=== PATIENT | male | born 1940 | race Caucasian/White ===

== ENCOUNTER 2017-03-15 20:30 | Emergency (ER) | payer MEDICARE, OTHER ==
[~2017-03-15] VITALS: Ht 170.1 cm; Wt 90.7 kg
[~2017-03-15 20:30] MED LIST: ALPHA LIPOIC A300 MG PO; ASPIRIN81 M1 PO; ATORVASTATIN CA10 M1 PO; CARVEDILOL6.25 MG PO; EXELON PO; EXELON3 MG PO; JANUMET 1000 MG1 TAB PO; JANUMET XR 1001 EACH PO; KEFLEX500 MG PO; LOTREL 10 MG-401 CAP PO; LOTREL 5 MG-101 CAP PO; METFORMIN500 MG PO; NIACIN1 TAB; TOBRADEX 0.1%-0.5 ML OPH; VITAMIN D31000 I2 PO; ZINC50 M3 PO
== END 2017-03-15 21:24 | disposition home or self-care (01) ==
LOC: ED 20:30
DX: K59.00 Constipation, unspecified (principal); Z98.890 Other specified postprocedural states; Z90.89 Acquired absence of other organs; Z79.899 Other long term (current) drug therapy; Z79.82 Long term (current) use of aspirin; Z88.0 Allergy status to penicillin

== ENCOUNTER 2017-04-08 16:13 | Emergency (ER) | payer MEDICARE, OTHER ==
[~2017-04-08] VITALS: Ht 172.7 cm; Wt 86.2 kg
== END 2017-04-08 18:00 | disposition home or self-care (01) ==
LOC: ED 16:13
DX: K59.00 Constipation, unspecified (principal); Z98.890 Other specified postprocedural states; Z90.89 Acquired absence of other organs; Z79.82 Long term (current) use of aspirin; Z79.899 Other long term (current) drug therapy; Z88.0 Allergy status to penicillin

== ENCOUNTER → 2017-04-26 | Outpatient (CLI) | payer MEDICARE, OTHER | END | disposition home or self-care (01) | LOC: RESCLI 01:22 | DX: E78.5 Hyperlipidemia, unspecified (principal); E11.40 Type 2 diabetes mellitus with diabetic neuropathy, unspecified; F03.90 Unspecified dementia, unspecified severity, without behavioral disturbance, psychotic disturbance, mood disturbance, and anxiety; K59.00 Constipation, unspecified; I10 Essential (primary) hypertension ==

== ENCOUNTER → 2017-07-19 | Outpatient (CLI) | payer MEDICARE, OTHER | END | disposition home or self-care (01) | LOC: RESCLI 03:12 | DX: E11.40 Type 2 diabetes mellitus with diabetic neuropathy, unspecified (principal); I10 Essential (primary) hypertension; E78.5 Hyperlipidemia, unspecified; F03.90 Unspecified dementia, unspecified severity, without behavioral disturbance, psychotic disturbance, mood disturbance, and anxiety; K59.00 Constipation, unspecified ==

== ENCOUNTER → 2017-12-08 | Outpatient (CLI) | payer MEDICARE, OTHER ==
--- NOTE | ~2017-12-08 | EKG ---
[place], [place] ELECTROCARDIOGRAM REPORT NAME: ENID STEPHENS UNIT #: [id number] ROOM: DOCTOR: CORI ALVARES MD BIRTHDATE: [birth year] DOS: 12/08/2017 TIME: 1410 hours. FINDINGS: 1. Normal sinus rhythm at 74 beats per minute. 2. Low voltage T waves in lead 1 and aVL. 3. Mildly abnormal ECG. 4. No previous tracing is available for comparison. CORI ALVARES MD CM:EKGRPT:ELECTROCARDIOGRAM REPORT [id number] CORI ALVARES MD
[2017-12-08 14:36] LABS: BASO # 0.1 10*3/uL (0.0-0.1); BASO % 0.7 % (0.0-1.0); EOS # 0.8 10*3/uL (0.0-0.4); HEMATOCRIT 43.2 % (42.0-52.0); HEMOGLOBIN 14.7 g/dl (14.0-18.0); MEAN CELL VOLUME 90.6 fl (80.0-94.0); MEAN CORPUSCULAR HGB 30.8 pg (27.0-31.0); MEAN PLATELET VOLUME 9.2 fl (9.6-12.3); MONO # 0.6 10*3/uL (0.1-1.0); MONO % 6.7 % (3.0-9.0); NEUT # 5.2 10*3/uL (2.3-7.9); NEUT % 59.8 % (47.0-73.0); PLATELET COUNT AUTOMATED 222 10*3/uL (130-400); RED BLOOD COUNT 4.77 10*6/uL (4.50-5.90); RED CELL DISTRI WIDTH 13.5 % (0-14.5); WHITE BLOOD COUNT 8.7 10*3/uL (4.8-10.8)
[2017-12-08 14:42] LABS: ALKALINE PHOSPHATASE 94 U/L (45-117); BUN 13 mg/dl (7-24); CHLORIDE 105 mmol/L (98-107); CHOLESTEROL 118 mg/dL (<200); CREATININE 0.77 mg/dL (0.70-1.30); HDL CHOLESTEROL 35 mg/dl (40-60); LDL CHOLESTEROL 54 mg/dL (9-159); POTASSIUM 4.2 mmol/L (3.5-5.1); SGOT/AST 8 IU/L (3-35); SGPT/ALT 14 U/L (12-78); SODIUM 141 mmol/L (136-145); TOTAL PROTEIN 8.7 gm/dL (6.4-8.2); TRIGLYCERIDES 146 mg/dl (<150); VLDL CHOLESTEROL 29 mg/dL (6-40)
[2017-12-08 15:11] LABS: VITAMIN D, 25-HYDROXY 22.9 ng/mL (30-100)
== END | disposition home or self-care (01) ==
LOC: RESCLI 08:02
PROVIDERS: Student in an Organized Health Care Education/Training Program
DX: Z12.11 Encounter for screening for malignant neoplasm of colon (principal); E78.5 Hyperlipidemia, unspecified; E11.40 Type 2 diabetes mellitus with diabetic neuropathy, unspecified; I10 Essential (primary) hypertension; F03.90 Unspecified dementia, unspecified severity, without behavioral disturbance, psychotic disturbance, mood disturbance, and anxiety; K59.00 Constipation, unspecified; E66.3 Overweight; Z79.899 Other long term (current) drug therapy; Z79.82 Long term (current) use of aspirin; Z88.8 Allergy status to other drugs, medicaments and biological substances

== ENCOUNTER → 2018-03-21 | Outpatient (CLI) | payer MEDICARE, OTHER ==
[2018-03-21 11:17] LABS: ALBUMIN 3.8 gm/dl (3.1-4.5); BUN 13 mg/dl (7-24); CHLORIDE 102 mmol/L (98-107); CREATININE 0.83 mg/dL (0.70-1.30); POTASSIUM 4.2 mmol/L (3.5-5.1); SGOT/AST 15 IU/L (3-35); SGPT/ALT 19 U/L (12-78); SODIUM 139 mmol/L (136-145); TOTAL PROTEIN 8.7 gm/dL (6.4-8.2)
[2018-03-21 11:19] LABS: ALKALINE PHOSPHATASE 91 U/L (45-117)
== END | disposition home or self-care (01) ==
LOC: RESCLI 00:51
PROVIDERS: Student in an Organized Health Care Education/Training Program
DX: Z23 Encounter for immunization (principal); I10 Essential (primary) hypertension; E78.5 Hyperlipidemia, unspecified; E11.40 Type 2 diabetes mellitus with diabetic neuropathy, unspecified; F03.90 Unspecified dementia, unspecified severity, without behavioral disturbance, psychotic disturbance, mood disturbance, and anxiety; K59.00 Constipation, unspecified; E66.3 Overweight; Z79.899 Other long term (current) drug therapy; Z88.8 Allergy status to other drugs, medicaments and biological substances; Z79.82 Long term (current) use of aspirin

== ENCOUNTER → 2018-08-08 | Outpatient (CLI) | payer MEDICARE, OTHER ==
[~2018-08-08] MED LIST changes: +DOXYCYCLINE100 M3 PO; +FINASTERIDE5 M1 PO; +FLOMAX0.4 MG PO; +GLUCOPHAGE1000 MG PO; +GLUCOPHAGE500 MG PO; +JANUVIA100 MG PO
== END | disposition home or self-care (01) ==
LOC: RESCLI 08-07 11:58
DX: Z23 Encounter for immunization (principal); I10 Essential (primary) hypertension; E78.5 Hyperlipidemia, unspecified; E11.40 Type 2 diabetes mellitus with diabetic neuropathy, unspecified; F03.90 Unspecified dementia, unspecified severity, without behavioral disturbance, psychotic disturbance, mood disturbance, and anxiety; K59.00 Constipation, unspecified; E66.3 Overweight; N39.42 Incontinence without sensory awareness

== ENCOUNTER → 2018-11-23 | Outpatient (CLI) | payer MEDICARE, OTHER ==
[2018-11-23 14:05] LABS: BUN 14 mg/dl (7-24); CHLORIDE 103 mmol/L (98-107); CREATININE 1.01 mg/dL (0.70-1.30); POTASSIUM 4.3 mmol/L (3.5-5.1); SODIUM 140 mmol/L (136-145)
== END | disposition home or self-care (01) ==
LOC: RESCLI 00:28
PROVIDERS: Internal Medicine
DX: E11.40 Type 2 diabetes mellitus with diabetic neuropathy, unspecified (principal); I10 Essential (primary) hypertension; E78.5 Hyperlipidemia, unspecified; F03.90 Unspecified dementia, unspecified severity, without behavioral disturbance, psychotic disturbance, mood disturbance, and anxiety; K59.00 Constipation, unspecified; E66.3 Overweight; N39.42 Incontinence without sensory awareness; Z88.8 Allergy status to other drugs, medicaments and biological substances; Z79.899 Other long term (current) drug therapy

== ENCOUNTER → 2018-12-20 | Outpatient (CLI) | payer MEDICARE, OTHER | LOC: US 00:28 | DX: N13.39 Other hydronephrosis (principal) ==

== ENCOUNTER 2019-01-07 11:40 | Emergency (ER) | payer MEDICARE, OTHER ==
[~2019-01-07] VITALS: Ht 172.7 cm; Wt 80.4 kg
--- NOTE | ~2019-01-07 | EKG ---
[place], [place] ELECTROCARDIOGRAM REPORT NAME: ENID STEPHENS UNIT #: [id number] ROOM: DOCTOR: EPIPHANY DRAFT REPORT BIRTHDATE: [birth year] [facility] Test Date: 2019-01-07 Test Time: 11:57:13 Pat Name: ENID STEPHENS Department: Room: Gender: Immigration Paralegal: Cecily Barbosa : 1940 Requested By: CASTRO NEFF Order Number: [id number] Reading MD: Matias Pate MD Measurements Intervals [place] Rate: 93 P: 42 AR: 163 QRS: -23 QRSD: 89 T: 1 QT: 393 QTc: 489 Interpretive Statements Sinus rhythm Low voltage, precordial leads Left ventricular hypertrophy Anterior Q waves, possibly due to LVH Compared to ECG 01/02/2019 01:31:57 Left ventricular hypertrophy now present Q waves now present Electronically Signed On 01-10-2019 14:22:25 PDT by Matias Pate MD CM:EKGRPT:ELECTROCARDIOGRAM REPORT [id number] CASTRO THORNTON DRAFT REPORT CASTRO NEFF M.D.
[~2019-01-07 11:40] MED LIST changes: -GLUCOPHAGE1000 MG PO; -JANUVIA100 MG PO
[2019-01-07] MEDS ORDERED: JANUVIA100 MG PO (12:00)
[2019-01-07] MEDS ORDERED: GLUCOPHAGE1000 MG PO (12:01)
[2019-01-07 12:07] LABS: BASO % 0.3 % (0.0-1.0); EOS # 0.4 10*3/uL (0.0-0.4); EOS % 4.2 % (1.0-4.0); HEMATOCRIT 35.2 % (42.0-52.0); HEMOGLOBIN 11.8 g/dl (14.0-18.0); LYMPH # 1.8 10*3/uL (1.3-4.4); LYMPH % 19.6 % (27.0-41.0); MEAN CELL VOLUME 94.1 fl (80.0-94.0); MEAN CORPUSCULAR HGB 31.6 pg (27.0-31.0); MEAN CORPUSCULAR HGB CONC 33.5 g/dl (33.0-37.0); MEAN PLATELET VOLUME 8.6 fl (9.6-12.3); MONO # 0.6 10*3/uL (0.1-1.0); MONO % 6.3 % (3.0-9.0); NEUT # 6.3 10*3/uL (2.3-7.9); NEUT % 68.1 % (47.0-73.0); PLATELET COUNT AUTOMATED 319 10*3/uL (130-400); RED BLOOD COUNT 3.74 10*6/uL (4.50-5.90); RED CELL DISTRI WIDTH 12.7 % (0-14.5); WHITE BLOOD COUNT 9.3 10*3/uL (4.8-10.8)
[2019-01-07 12:23] LABS: ALBUMIN 2.9 gm/dl (3.1-4.5); ALKALINE PHOSPHATASE 81 U/L (45-117); BUN 14 mg/dl (7-24); CHLORIDE 100 mmol/L (98-107); CREATININE 0.85 mg/dL (0.70-1.30); POTASSIUM 3.8 mmol/L (3.5-5.1); SGOT/AST 14 IU/L (3-35); SGPT/ALT 18 U/L (12-78); SODIUM 134 mmol/L (136-145); TOTAL PROTEIN 7.5 gm/dL (6.4-8.2)
[2019-01-07 12:28] LABS: TROPONIN I < 0.015 ng/ml (<0.045)
[2019-01-07 13:08] LABS: BILIRUBIN NEGATIVE (NEGATIVE); BLOOD TRACE-INTACT (NEGATIVE); CLARITY CLOUDY (CLEAR); COLOR YELLOW (YELLOW); GLUCOSE NEGATIVE (NEGATIVE); KETONE NEGATIVE (NEGATIVE); LEUKO ESTERASE 1+ (NEGATIVE); NITRITE NEGATIVE (NEGATIVE); UROBILINOGEN 0.2 E.U./dl (0.2-1.0)
[2019-01-07 13:20] LABS: BACTERIA 3+; RBC 31-40 rbc/hpf (0-2); WBC TNTC wbc/hpf (0-5)
== END 2019-01-07 16:48 | disposition short-term general hospital (02) ==
LOC: ED 11:40
PROVIDERS: Emergency Medicine
DX: N39.0 Urinary tract infection, site not specified (principal); E11.9 Type 2 diabetes mellitus without complications; E78.5 Hyperlipidemia, unspecified; I10 Essential (primary) hypertension; Z88.0 Allergy status to penicillin; Z79.2 Long term (current) use of antibiotics; Z79.899 Other long term (current) drug therapy; Z79.82 Long term (current) use of aspirin

== ENCOUNTER → 2019-02-15 | Outpatient (CLI) | payer MEDICARE, OTHER ==
[~2019-02-15] MED LIST changes: +GLUCOPHAGE1000 MG PO; +JANUVIA100 MG PO
== END | disposition home or self-care (01) ==
LOC: RESCLI 01:45
DX: E78.5 Hyperlipidemia, unspecified (principal); E11.40 Type 2 diabetes mellitus with diabetic neuropathy, unspecified; F03.90 Unspecified dementia, unspecified severity, without behavioral disturbance, psychotic disturbance, mood disturbance, and anxiety; K59.00 Constipation, unspecified; I10 Essential (primary) hypertension; Z79.899 Other long term (current) drug therapy

== ENCOUNTER → 2019-02-15 | Outpatient (CLI) | payer MEDICARE, OTHER ==
[~2019-02-15] MED LIST changes: +ASPIRIN ADULT L81 M2 PO; +CIPRO500 MG PO; +JANUMET XR 50-1 EAC1 PO; +MIRALAX17 GM PO
[2019-02-15 14:22] LABS: BILIRUBIN NEGATIVE (NEGATIVE); BLOOD 2+ (NEGATIVE); CLARITY CLOUDY (CLEAR); COLOR YELLOW (YELLOW); GLUCOSE NEGATIVE (NEGATIVE); KETONE NEGATIVE (NEGATIVE); LEUKO ESTERASE 3+ (NEGATIVE); NITRITE POSITIVE (NEGATIVE); SPECIFIC GRAVITY 1.015 (1.005-1.030); UROBILINOGEN 0.2 E.U./dl (0.2-1.0)
[2019-02-15 14:30] LABS: BASO # 0.1 10*3/uL (0.0-0.1); BASO % 0.6 % (0.0-1.0); EOS # 0.2 10*3/uL (0.0-0.4); EOS % 1.8 % (1.0-4.0); HEMATOCRIT 37.1 % (42.0-52.0); HEMOGLOBIN 11.9 g/dl (14.0-18.0); LYMPH # 1.6 10*3/uL (1.3-4.4); LYMPH % 14.2 % (27.0-41.0); MEAN CELL VOLUME 95.4 fl (80.0-94.0); MEAN CORPUSCULAR HGB 30.6 pg (27.0-31.0); MEAN CORPUSCULAR HGB CONC 32.1 g/dl (33.0-37.0); MEAN PLATELET VOLUME 9.3 fl (9.6-12.3); MONO # 0.8 10*3/uL (0.1-1.0); MONO % 7.6 % (3.0-9.0); NEUT # 8.1 10*3/uL (2.3-7.9); NEUT % 73.5 % (47.0-73.0); PLATELET COUNT AUTOMATED 478 10*3/uL (130-400); RED BLOOD COUNT 3.89 10*6/uL (4.50-5.90); RED CELL DISTRI WIDTH 13.6 % (0-14.5); WHITE BLOOD COUNT 11.1 10*3/uL (4.8-10.8)
[2019-02-15 14:33] LABS: BACTERIA 4+; MUCOUS 2+; WBC TNTC wbc/hpf (0-5)
[2019-02-15 14:49] LABS: ALBUMIN 2.8 gm/dl (3.1-4.5); ALKALINE PHOSPHATASE 95 U/L (45-117); BUN 23 mg/dl (7-24); CHLORIDE 98 mmol/L (98-107); CREATININE 1.04 mg/dL (0.70-1.30); POTASSIUM 3.9 mmol/L (3.5-5.1); SGOT/AST 26 IU/L (3-35); SGPT/ALT 57 U/L (12-78); SODIUM 134 mmol/L (136-145); TOTAL PROTEIN 8.1 gm/dL (6.4-8.2)
== END | disposition home or self-care (01) ==
LOC: LAB 12:37
PROVIDERS: Nurse Practitioner Family
DX: Z12.5 Encounter for screening for malignant neoplasm of prostate (principal); R31.9 Hematuria, unspecified; D40.0 Neoplasm of uncertain behavior of prostate

== ENCOUNTER 2019-02-16 21:23 | Emergency (ER) | payer MEDICARE, OTHER ==
[~2019-02-16] VITALS: Ht 172.7 cm; Wt 74.1 kg
[~2019-02-16 21:23] MED LIST changes: -ASPIRIN ADULT L81 M2 PO; -CIPRO500 MG PO; -JANUMET XR 50-1 EAC1 PO; -MIRALAX17 GM PO
[2019-02-16 22:36] LABS: BASO % 0.2 % (0.0-1.0); EOS # 0.1 10*3/uL (0.0-0.4); HEMATOCRIT 34.6 % (42.0-52.0); HEMOGLOBIN 11.6 g/dl (14.0-18.0); LYMPH # 1.4 10*3/uL (1.3-4.4); LYMPH % 11.7 % (27.0-41.0); MEAN CORPUSCULAR HGB 31.2 pg (27.0-31.0); MEAN CORPUSCULAR HGB CONC 33.5 g/dl (33.0-37.0); MEAN PLATELET VOLUME 8.7 fl (9.6-12.3); MONO # 0.8 10*3/uL (0.1-1.0); MONO % 6.7 % (3.0-9.0); NEUT # 9.5 10*3/uL (2.3-7.9); NEUT % 78.5 % (47.0-73.0); PLATELET COUNT AUTOMATED 403 10*3/uL (130-400); RED BLOOD COUNT 3.72 10*6/uL (4.50-5.90); RED CELL DISTRI WIDTH 13.5 % (0-14.5); WHITE BLOOD COUNT 12.2 10*3/uL (4.8-10.8)
[2019-02-16 22:53] LABS: ALBUMIN 2.4 gm/dl (3.1-4.5); ALKALINE PHOSPHATASE 84 U/L (45-117); BUN 23 mg/dl (7-24); CHLORIDE 101 mmol/L (98-107); LIPASE 85 U/L (73-393); POTASSIUM 3.9 mmol/L (3.5-5.1); SGOT/AST 31 IU/L (3-35); SGPT/ALT 54 U/L (12-78); SODIUM 136 mmol/L (136-145); TOTAL PROTEIN 6.8 gm/dL (6.4-8.2); TROPONIN I < 0.015 ng/ml (<0.045)
[2019-02-17 00:01] LABS: BILIRUBIN NEGATIVE (NEGATIVE); BLOOD 3+ (NEGATIVE); CLARITY CLOUDY (CLEAR); COLOR YELLOW (YELLOW); GLUCOSE NEGATIVE (NEGATIVE); KETONE NEGATIVE (NEGATIVE); LEUKO ESTERASE 2+ (NEGATIVE); NITRITE POSITIVE (NEGATIVE); UROBILINOGEN 0.2 E.U./dl (0.2-1.0)
[2019-02-17 00:18] LABS: BACTERIA 2+; EPITHELIAL CELLS 0-2; WBC TNTC wbc/hpf (0-5)
== END 2019-02-17 02:35 | disposition short-term general hospital (02) ==
LOC: ED 21:23
PROVIDERS: Emergency Medicine Emergency Medical Services
DX: N39.0 Urinary tract infection, site not specified (principal); E86.0 Dehydration; L89.152 Pressure ulcer of sacral region, stage 2; I10 Essential (primary) hypertension; E78.5 Hyperlipidemia, unspecified; E11.9 Type 2 diabetes mellitus without complications; Z88.0 Allergy status to penicillin; Z79.899 Other long term (current) drug therapy

== ENCOUNTER 2019-04-08 16:07 | Inpatient (IN) | payer MEDICARE, OTHER ==
[~2019-04-08] VITALS: Ht 172.7 cm; Wt 66.4 kg
--- NOTE | ~2019-04-08 | EKG ---
[place], [place] ELECTROCARDIOGRAM REPORT NAME: ENID STEPHENS UNIT #: [id number] ROOM: 524 DOCTOR: HILLARY DRAFT REPORT BIRTHDATE: [birth year] [facility] Test Date: 2019-04-08 Test Time: 19:56:20 Pat Name: ENID STEPHENS Department: Room: 524 Gender: M Electrician Helper Powerhouse: : 1940 Requested By: NERIS DEL ROSARIO Order Number: [id number] Reading MD: Slaeem Ann Measurements Intervals [place] Rate: 91 P: -25 MA: 161 QRS: -16 QRSD: 92 T: 43 QT: 386 QTc: 475 Interpretive Statements Sinus rhythm Ventricular premature complex Borderline left axis deviation Low voltage, precordial leads Abnormal R-wave progression, early transition Baseline wander in lead(s) V6 Compared to ECG 02/16/2019 22:35:55 Ventricular premature complex(es) now present Low QRS voltage now present Myocardial infarct finding no longer present Prolonged QT interval no longer present Electronically Signed On 04-09-2019 11:15:47 PST by Saleem Ann CM:EKGRPT:ELECTROCARDIOGRAM REPORT [id number] NERIS THORNTON DRAFT REPORT NERIS DEL ROSARIO MD
--- NOTE | ~2019-04-08 | EKG ---
[place], [place] ELECTROCARDIOGRAM REPORT NAME: ENID STEPHENS UNIT #: [id number] ROOM: 524 DOCTOR: HILLARY DRAFT REPORT BIRTHDATE: [birth year] [facility] Test Date: 2019-04-08 Test Time: 16:07:38 Pat Name: ENID STEPHENS Department: Room: 524 Gender: M Underwriting Intern: : 1940 Requested By: NERIS DEL ROSARIO Order Number: [id number] Reading MD: Saleem Ann Measurements Intervals [place] Rate: 96 P: -30 PA: 145 QRS: -9 QRSD: 87 T: 53 QT: 365 QTc: 462 Interpretive Statements Sinus rhythm Ventricular premature complex Low voltage, precordial leads Abnormal R-wave progression, early transition Baseline wander in lead(s) I,II,aVR Compared to ECG 02/16/2019 22:35:55 Ventricular premature complex(es) now present Low QRS voltage now present Myocardial infarct finding no longer present Prolonged QT interval no longer present Electronically Signed On 04-09-2019 11:13:23 PST by Slaeem Ann CM:EKGRPT:ELECTROCARDIOGRAM REPORT [id number] NERIS THORNTON DRAFT REPORT NERIS DEL ROSARIO MD
[2019-04-08 16:13] VITALS: BP 91/58
[2019-04-08 16:27] LABS: BASO % 0.3 % (0.0-1.0); EOS # 0.4 10*3/uL (0.0-0.4); EOS % 3.1 % (1.0-4.0); HEMATOCRIT 33.6 % (42.0-52.0); HEMOGLOBIN 10.9 g/dl (14.0-18.0); LYMPH # 1.4 10*3/uL (1.3-4.4); LYMPH % 11.3 % (27.0-41.0); MEAN CELL VOLUME 91.8 fl (80.0-94.0); MEAN CORPUSCULAR HGB 29.8 pg (27.0-31.0); MEAN CORPUSCULAR HGB CONC 32.4 g/dl (33.0-37.0); MEAN PLATELET VOLUME 8.7 fl (9.6-12.3); MONO # 0.7 10*3/uL (0.1-1.0); MONO % 5.7 % (3.0-9.0); NEUT # 9.4 10*3/uL (2.3-7.9); NEUT % 77.6 % (47.0-73.0); PLATELET COUNT AUTOMATED 332 10*3/uL (130-400); RED BLOOD COUNT 3.66 10*6/uL (4.50-5.90); RED CELL DISTRI WIDTH 14.5 % (0-14.5); WHITE BLOOD COUNT 12.2 10*3/uL (4.8-10.8)
[2019-04-08 16:37] LABS: ACT PARTIAL THROMBO TIME 26.3 SECONDS (20.0-32.1); INTERNATIONAL NORM RATIO 1.1 (2.0-3.5)
[2019-04-08 16:47] LABS: ALBUMIN 2.8 gm/dl (3.1-4.5); ALKALINE PHOSPHATASE 92 U/L (45-117); BUN 21 mg/dl (7-24); CHLORIDE 96 mmol/L (98-107); CREATININE 1.14 mg/dL (0.70-1.30); POTASSIUM 3.9 mmol/L (3.5-5.1); SGOT/AST 13 IU/L (3-35); SGPT/ALT 13 U/L (12-78); SODIUM 132 mmol/L (136-145); TOTAL PROTEIN 7.8 gm/dL (6.4-8.2)
[2019-04-08 16:49] LABS: TROPONIN I < 0.015 ng/ml (<0.045)
[2019-04-08 17:30] VITALS: BP 91/60
[2019-04-08 18:05] LABS: BILIRUBIN NEGATIVE (NEGATIVE); BLOOD 1+ (NEGATIVE); CLARITY CLOUDY (CLEAR); COLOR YELLOW (YELLOW); GLUCOSE NEGATIVE (NEGATIVE); KETONE NEGATIVE (NEGATIVE); LEUKO ESTERASE 2+ (NEGATIVE); NITRITE NEGATIVE (NEGATIVE); PH 5.5 (5.0-9.0); SPECIFIC GRAVITY >= 1.030 (1.005-1.030)
[2019-04-08 18:10] LABS: BACTERIA 3+; MUCOUS 2+; WBC TNTC wbc/hpf (0-5)
[2019-04-08] MEDS ORDERED: CIPRO500 MG PO (18:47)
[2019-04-08 18:49] VITALS: BP 95/57
[2019-04-08 20:00] VITALS: BP 113/61
[2019-04-08 20:15] VITALS: BP 113/61
--- NOTE | 2019-04-08 20:15 | NUR ---
A 78, admitted to 5E, under the services of CHANCE Cano DO with a diagnosis of UTI, GAIT INSTABILITY, FREQUENT FALLS, GENERALIZED WEAKNESS. Chief complaint is WEAKNESS. Patient arrived via stretcher from ER. Monitor applied. Initial assessment completed. Vital signs taken and recorded. CHANCE CANO DO notified of admission to the unit. Orders received. See assessment for past medical history, medications and allergies. Patient and/or family oriented to unit. [facility] visitation policy reviewed. Clothing/patient valuable form completed. RHYS RAMSAY
[2019-04-08] MEDS ORDERED: JANUMET XR 50-1 EAC1 PO (20:29)
[2019-04-08] MEDS ORDERED: MIRALAX17 GM PO (20:32)
--- NOTE | 2019-04-08 20:32 | NUR ---
PT'S HOME MED REC UP TO DATE PER .
--- NOTE | 2019-04-08 22:30 | NUR ---
BOLUS 2 OF 2 COMPLETE AT THIS TIME. PER SEPSIS PROTOCOL, PT IS TO GET 30ML/KG. 66.39 KG X 30 ML/KG = 1991.7 ML.
[2019-04-09] VITALS: BP 107/60
--- NOTE | 2019-04-09 03:50 | NUR ---
PT ASLEEP IN BED, EASILY AROUSABLE. DENIES ANY NEEDS AT PRESENT TIME. WILL MONITOR. CALL LIGHT IN REACH.
[2019-04-09 06:31] LABS: BASO % 0.5 % (0.0-1.0); EOS # 0.5 10*3/uL (0.0-0.4); EOS % 5.4 % (1.0-4.0); HEMATOCRIT 29.6 % (42.0-52.0); HEMOGLOBIN 9.7 g/dl (14.0-18.0); LYMPH # 1.3 10*3/uL (1.3-4.4); MEAN CELL VOLUME 90.8 fl (80.0-94.0); MEAN CORPUSCULAR HGB 29.8 pg (27.0-31.0); MEAN CORPUSCULAR HGB CONC 32.8 g/dl (33.0-37.0); MEAN PLATELET VOLUME 8.5 fl (9.6-12.3); MONO # 0.6 10*3/uL (0.1-1.0); MONO % 7.5 % (3.0-9.0); NEUT # 5.9 10*3/uL (2.3-7.9); NEUT % 68.9 % (47.0-73.0); PLATELET COUNT AUTOMATED 281 10*3/uL (130-400); RED BLOOD COUNT 3.26 10*6/uL (4.50-5.90); RED CELL DISTRI WIDTH 14.3 % (0-14.5); WHITE BLOOD COUNT 8.5 10*3/uL (4.8-10.8)
[2019-04-09 07:00] LABS: BUN 16 mg/dl (7-24); CHLORIDE 104 mmol/L (98-107); CREATININE 0.73 mg/dL (0.70-1.30); PHOSPHOROUS 3.4 mg/dL (2.5-4.9); POTASSIUM 3.6 mmol/L (3.5-5.1); SODIUM 136 mmol/L (136-145)
--- NOTE | 2019-04-09 08:09 | NUR ---
Nursing screen received as well as OT referral. Will follow up with patient for completion of OT eval and POC. Thank you. Judit Ashley, OTR/L
[2019-04-09 12:00] VITALS: BP 133/67
--- NOTE | 2019-04-09 12:54 | NUR ---
UTILIZATION MANAGEMENT NURSE received notice that the patient would like to be referred to [facility]. UTILIZATION MANAGEMENT NURSE faxed demographics to [facility]. Will fax other information once it is available. -LUANNE Conley
--- NOTE | 2019-04-09 13:50 | NUR ---
ISABEL WAS NOT IN [place]. CALLED PHARMACY TO SEND MED.
--- NOTE | 2019-04-09 13:55 | NUR ---
Occupational therapy orders received and OT evaluation completed in full on floor five. Patient precautions include fall risk, ww use, bed/chair alarm, and contact precautions. Per OT eval, OT recommends home with HH SN, OT, and PT. Patient complexity is low, 228[address]. Thank you for the referral. Judit Ashley, OTR/L
--- NOTE | 2019-04-09 14:24 | NUR ---
Cigar Packer in to talk to patient. Patient states lives at HOME with . There are FEW steps in the home. Physician: ERIC Pharmacy: [facility] Home health services: [facility] N[facility]SE 1 DAY WEEK, PT 2 DAYS A WEEK Patient's level of ADLs: MODERATE ASSIST Patient has working utilities: YES DME: ROLLATOR, WALKER, CANE Follow-up physician's appointment after d/c: WILL BE MADE BY HOSPITALIST NURSE DIRECTOR ON DISCHARGE Does patient want to access PORTAL?: NO Discharge plan PT LIVES AT HOME WITH HIS . STATES PT HAS BEEN FALLING AT HOME AND HAS BEEN VERY WEAK. PT HAS SUPRA PUBIC CATHETER INSERTED 10 DAYS AGO. TALKED WITH ABOUT A SNF CONSULT AND SHE IS IN AGREEMENT FOR IT. REFERRAL WAS MADE TO [facility] WIFES CHOICE BY METAL DRAWER. WILL CONTINUE TO FOLLOW. . CHAI DEL CID
[2019-04-09 16:00] VITALS: BP 82/67
--- NOTE | 2019-04-09 16:23 | NUR ---
NOTIFIED OF POSITIVE BLOOD CULTURE. NEW ORDERS RECEIVED.
[2019-04-09 16:30] VITALS: BP 110/64; BP 130/72
--- NOTE | 2019-04-09 19:54 | NUR ---
IV ABX INFUSION COMPLETE, BUT IV IN RAC EDEMATOUS & PAINFUL AT THIS TIME. SITE TO RAC REMOVED AND DSD APPLIED. NEW 20 GAUGE IV SITE INITIATED IN LAC PER POLICY. PT TOLERATED WELL. BED LEFT LOCKED IN LOW POSITION, BED ALARM INTACT, CALL LIGHT IN REACH.
[2019-04-09 20:00] VITALS: BP 119/65
[2019-04-10] VITALS: BP 122/72
--- NOTE | 2019-04-10 00:58 | NUR ---
PT REFUSING TO HAVE VITALS TAKEN. TOLD STAFF TO "GET THE H*LL OUT" OF HIS ROOM. PATIENT TO BE LEFT ALONE AT THIS TIME. BED ALARM INTACT. CALL LIGHT IN REACH.
[2019-04-10 06:57] LABS: BASO # 0.1 10*3/uL (0.0-0.1); BASO % 0.6 % (0.0-1.0); EOS # 0.9 10*3/uL (0.0-0.4); EOS % 9.3 % (1.0-4.0); HEMATOCRIT 30.8 % (42.0-52.0); HEMOGLOBIN 10.2 g/dl (14.0-18.0); LYMPH # 1.4 10*3/uL (1.3-4.4); LYMPH % 15.3 % (27.0-41.0); MEAN CELL VOLUME 90.9 fl (80.0-94.0); MEAN CORPUSCULAR HGB 30.1 pg (27.0-31.0); MEAN CORPUSCULAR HGB CONC 33.1 g/dl (33.0-37.0); MEAN PLATELET VOLUME 8.8 fl (9.6-12.3); MONO # 0.6 10*3/uL (0.1-1.0); NEUT # 6.2 10*3/uL (2.3-7.9); NEUT % 66.8 % (47.0-73.0); PLATELET COUNT AUTOMATED 325 10*3/uL (130-400); RED BLOOD COUNT 3.39 10*6/uL (4.50-5.90); RED CELL DISTRI WIDTH 14.4 % (0-14.5); WHITE BLOOD COUNT 9.3 10*3/uL (4.8-10.8)
[2019-04-10 07:19] LABS: BUN 11 mg/dl (7-24); CHLORIDE 103 mmol/L (98-107); CREATININE 0.65 mg/dL (0.70-1.30); POTASSIUM 3.5 mmol/L (3.5-5.1); SODIUM 136 mmol/L (136-145)
--- NOTE | 2019-04-10 11:58 | NUR ---
DR BARKER'S OFFICE NOTIFIED OF PT CONSULT FOR GPC BACTEREMIA, GPC, HX MRSA AND UTI.
[2019-04-10 12:00] VITALS: BP 104/60
--- NOTE | 2019-04-10 12:21 | NUR ---
ENGINEERING DESIGNER faxed updates to [facility]. Will need PT Eval to complete referral. -LUANNE Conley
--- NOTE | 2019-04-10 13:08 | NUR ---
PT HAS BEEN REFERRED TO [facility] PER WISHES. PT REQUIRES A 3 NIGHT STAY. WILL CONTINUE TO FOLLOW.
--- NOTE | 2019-04-10 14:14 | NUR ---
OT NOTE Pt was seen this P.M. 1:1 for 15 minute OT session. Upon arrival pt was supine in bed. Pt identified by name and and had no complaints at this time. Pt transferred supine to sit EOB with Stas for assist with UB. Pt completed multiple sit to stand transfers from the bed level with CGA and use of w/w for UE support. Challenged pt's static standing tolerance needed for increased I in self care tasks and functional transfers. Pt was able to tolerate aprox 4 minutes before sitting due to fatigue. Functional mobility was then completed to the bathroom with CGA and use of w/w with one tactile prompt for walker navigation. While in the bathroom pt required education on tight turning technique due to pt being unsure how to complete and walking away without the walker. Pt had fair carry over. Pt transferred on to standard commode with CGA and off with Stas due to low surface. He then stood sink side while washing his hands with CGA for safety. Again pt at the sink required education on walker safety. Pt was left sitting upright on the EOB under physical therapy supervision. Continue with rec D/C plan to home with home health. JAXON Funes/Shazia
--- NOTE | 2019-04-10 15:49 | NUR ---
PHYSICAL THERAPY Physical therapy evaluation completed, 5E. Full details to follow. moderate complexity determined after evaluation/chart review, [address]. PT to work on strength, safety, endurance, gait, transfers, balance. Recommending SNF at discharge. Thank you Gloria Gonzales, PT, DPT
[2019-04-10 16:00] VITALS: BP 112/66
--- NOTE | 2019-04-10 19:39 | NUR ---
PT ASSISTED UP OUT OF BED TO USE BATHROOM AND BACK INTO BED. PT HAD SMALL BOWEL MOVEMENT. BRIEF CHANGED IT WAS WET. BUTTOCKS RED BUT BLANCHABLE ON BONY PROMINENCE. HYDRAGUARD AND OPTIFOAM SACRAL APPLIED TO AREA PATIENT IS VERY THIN AND HAS POTENTIAL FOR BREAKDOWN. PATIENT STATES IT FEELS MUCH BETTER AFTER OPTIFOAM APPLICATION. NEW BED LINENS ALSO PROVIDED AT THIS TIME PT SPILLED WATER. PT PULLED UP & REPOSITIONED FOR COMFORT. BED LEFT LOCKED IN LOW POSIITON. BED ALARM INTACT. SIDE RAILS UP X2. CALL LIGHT IN REACH. WILL MONITOR.
[2019-04-10 20:00] VITALS: BP 109/62
[2019-04-11] VITALS: BP 123/71
--- NOTE | 2019-04-11 04:08 | NUR ---
PT ASLEEP IN BED. RESPIRATIONS EASY. NO S/S OF DISTRESS NOTED. WILL MONITOR. CALL LIGHT IN REACH. BED ALARM INTACT.
[2019-04-11 06:29] LABS: BASO # 0.1 10*3/uL (0.0-0.1); BASO % 0.6 % (0.0-1.0); EOS # 0.9 10*3/uL (0.0-0.4); EOS % 8.7 % (1.0-4.0); HEMATOCRIT 31.8 % (42.0-52.0); HEMOGLOBIN 10.1 g/dl (14.0-18.0); LYMPH # 1.7 10*3/uL (1.3-4.4); LYMPH % 15.9 % (27.0-41.0); MEAN CELL VOLUME 91.6 fl (80.0-94.0); MEAN CORPUSCULAR HGB 29.1 pg (27.0-31.0); MEAN CORPUSCULAR HGB CONC 31.8 g/dl (33.0-37.0); MEAN PLATELET VOLUME 8.8 fl (9.6-12.3); MONO # 0.7 10*3/uL (0.1-1.0); MONO % 6.3 % (3.0-9.0); NEUT # 7.2 10*3/uL (2.3-7.9); NEUT % 66.7 % (47.0-73.0); PLATELET COUNT AUTOMATED 342 10*3/uL (130-400); RED BLOOD COUNT 3.47 10*6/uL (4.50-5.90); RED CELL DISTRI WIDTH 14.5 % (0-14.5); WHITE BLOOD COUNT 10.8 10*3/uL (4.8-10.8)
[2019-04-11 06:43] LABS: BUN 10 mg/dl (7-24); CHLORIDE 106 mmol/L (98-107); CREATININE 0.73 mg/dL (0.70-1.30); POTASSIUM 3.7 mmol/L (3.5-5.1); SODIUM 141 mmol/L (136-145)
--- NOTE | 2019-04-11 07:44 | NUR ---
Waiting on acceptance from [facility]. CHAIRLIFT OPERATOR faxed PT/OT Eval and clinical updates to [facility].-LUANNE Conley
[2019-04-11 08:00] VITALS: BP 139/73
--- NOTE | 2019-04-11 08:00 | NUR ---
PHYSICAL THERAPY PT SITTING IN CHAIR WITH BODY ALARM PULLED UPON ARRIVAL. PT STATED "I DON'T KNOW WHY I HAVE THIS THING BUT HERE IT IS." HANGING THE STRING TO THIS INTERVENTION MANAGER. PT IDENTIFIED BY NAME AND . PT PERFORMED STS FROM CHAIR TO FWW WITH CGA AND VC'S FOR SAFTEY AND TECHNIQUE. PT GAIT TRAINED 10FT X2 WITH FWW AND CGA WITH VC'S FOR SAFETY PT WAS WANTING TO WALK WITHOUT WALKER. PT IS UNSTEADY AND GAIT TRAINED WITH A WBOS AND UNSTEADINESS. PT PERFORMED STS TO ANF FROM TOILET WITH CGA/MARYBETH WITH VC'S FOR SAFETY PT WANTED TO SIT WITH AN UNSAFE TECHNIQUE. PT PERFORMED STS TO CHAIR WITH VC'S FOR SAFETY WITH TRANSFER PT WAS STARTING TO SIT WITH UNSAFE TRANSFER. PT REQUIRED MARYBETH/CGA WITH STS. PT SITTING IN IN RECLINER WITH BODY ALARM ON AND CALL LIGHT WITHIN REACH AT END OF SESSION STARTING TO EAT BREAKFAST. PT SEEN 1:1 FOR 16MINS. ALYSSA DAVIS PTA
[2019-04-11 12:00] VITALS: BP 100/52
--- NOTE | 2019-04-11 14:22 | NUR ---
[facility] WILL NOT ACCEPT PT UNTIL THEY KNOW IF PT WILL REQUIRE ANTIBIOTICS AND WHAT THEY WILL BE. ID IS ON AND WAITING FOR FINAL CULTURES BEFORE DECIDING IF PT NEEDS ANTIBIOTICS.
[2019-04-11 16:00] VITALS: BP 105/62
[2019-04-11 20:00] VITALS: BP 104/58
--- NOTE | 2019-04-11 22:17 | NUR ---
PATIENT REFUSING INSULIN. STATING"I DO NOT WANT ANY GD INSULIN. GET OUT OF MY ROOM"
[2019-04-12] VITALS: BP 132/72
[2019-04-12 08:00] VITALS: BP 118/67
--- NOTE | 2019-04-12 09:35 | NUR ---
OT NOTE Pt was seen this A.M. 1:1 for 20 minute OT session. Upon arrival pt was sitting upright in the recliner. Pt identified by name and and had no complaints at this time. Pt completed sit to stand transfer from chair level with CGA for safety. Challenged pt's static standing tolerance needed for increased I in self care tasks and functional transfers, pt was able to tolerate aprox 5 minutes at a time before sitting due to fatigue. Functional mobility was then completed into the bathroom with SBA and use of straight cane for UE support. There he transferred on/off standard commode with SBA, completed clothing management with SBA, and toilet hygiene completed with supervision while seated. Pt then stood sink side while washing his hands and face with CGA for safety while vision was cut. Throughout tasks pt had bouts of impulsive behaviors and fair safety awareness which required verbal prompts to correct, pt then presented with good carry over. FUnctional mobility completed back to the recliner where he was left sitting upright with call light in hand, tray table in place, and body alarm activated for safety. Continue with rec D/C plan to home with home health. JAXON Funes/Shazia
--- NOTE | 2019-04-12 10:30 | NUR ---
PHYSICAL THERAPY Patient presented to therapy in sitting in bedside chair with head of bed elevated and report of no pain or other complaints. Patient gives informed consent for treatment. Patient was identified by name and on wristband. Patient performed sit to stand from bedside chair with SBA. Patient performed ambulation with standard cane and Close Supervision for 60' x 2 ,inside room only, due to isolation precautions. Patient had one LOB with gait requiring MIN A X 1 to correct. NO SOB with gait. Patient performed TUG TEST in 20 seconds with use of UEs to push off of armrests of chair. Patient used standard cane for TUG TEST. Patient performd 30 seconds sit to stand test at 7 Xs sit to stands in 30 seonds total. Patient did use UEs to push off of armrests of chair during 30 second sit to stand test. Patient has IV infusing at this time. Patient was left in bed side chair with call light within reach, chair alarm tested and attached to patient and tray table near patient. Patient was 1:1 with this SET UP MECHANIC AUTOMATIC LINE for 19 minutes total. ADEEL RILEY SET UP MECHANIC AUTOMATIC LINE with use of UEs t opush off of armrests of chair
--- NOTE | 2019-04-12 11:37 | NUR ---
WAITING FOR ACCEPTANCE AT [facility]. WILL CONTINUE TO FOLLOW.
[2019-04-12 12:00] VITALS: BP 134/80
--- NOTE | 2019-04-12 14:00 | NUR ---
OT NOTE Pt was seen this P.M. 1:1 for second OT session consisting of 20 minutes. Upon arrival pt was sitting upright in bedside chair. Pt identified by name and and had no complaints at this time. Sit to stand completed from chair level with CGA and use of straight cane for UE support followed by functional mobility into the bathroom with CGA. There he transferred on/off standard commode with SBA for safety. Pt then returned to the EOB where he completed BUE towel exercises over all planes of motion for 1 X 10 to increase UE strength needed for increased I in self care tasks and functional transfers. Pt was left sitting upright in the recliner with call light in hand, tray table in place, and phone in reach. Continue with rec D/C plan [facility]. JAXON Funes/Shazia
--- NOTE | 2019-04-12 14:29 | NUR ---
PHYSICAL THERAPY Patient presented to therapy in sitting in bedside chair with no concerns or complaints. Patient was identified by name and on wristband. Patient gives informed consent for treatment. Patient performed sit to stand from bedside chair with SBA. Patient ambulated within room with standard cane and Close Supervision for 60' x 1 and no LOB. Patient sat in bedside chair and performed seated bilateral LE ther ex 2 x 10 reps each in all planes of movement for strengthening the bilateral LEs in order to improve patient's functional mobility. Patient was left in bedside chair with call light within reach and tray table near patient. Patient was 1;1 with this TON CONTAINER FILLER for 20 minutes total. ADEEL RILEY TON CONTAINER FILLER
--- NOTE | 2019-04-12 15:08 | NUR ---
Waiting on acceptance from [facility]. STEWARD/STEWARDESS TOURIST CLASS faxed updates to [facility] showing the patients IVAB was discontinued. Will await for acceptance/denial. -LUANNE Conley
--- NOTE | 2019-04-12 15:43 | NUR ---
Patient has been accepted at [facility] and can go when medically stable. BEN DAY ARTIST spoke with Genomics Scientist Renetta. She spoke with the patients who stated she would transport the patient to [facility]. BEN DAY ARTIST notified Daniela that once a discharge is placed the patients family will be transporting him to her facility she was agreeable. -LUANNE Conley
[2019-04-12 16:00] VITALS: BP 121/69
--- NOTE | 2019-04-12 16:00 | NUR ---
DR COLINDRES NOTIFIED THAT PT HAS BEEN ACCEPTED TO [facility] AND CAN BE DISCHARGED TONIGHT. IN ROOM AND NOTIFIED THAT HE WAS ACCEPTED. STATES SHE WILL TRANSPORT HIM TO [facility]. HANANE Najera PT RN INFORMED.
--- NOTE | 2019-04-12 17:21 | NUR ---
Discharge instructions reviewed with patient/family. Patient receptive and verbalizes understanding. Follow-up care arranged. Written instructions given to patient/family. HANANE SAINI
--- NOTE | 2019-04-12 17:26 | NUR ---
NURSE TO NURSE REPORT GIVEN TO LEONARDO MEJIAS AT [facility].
--- NOTE | 2019-04-13 08:09 | NUR ---
PHYSICAL THERAPY CO-SIGN I approve of the Physical Therapy notes written above. Gloria Gonzales, PT, DPT
--- NOTE | 2019-04-13 08:14 | NUR ---
OCCUPATIONAL THERAPY CO-SIGN I approve of the Occupational Therapy notes written above. DIANE HUNG OTR/Shazia
== END 2019-04-12 17:26 | disposition other institution (70) | DRG 871 ==
LOC: ED 16:07 → 5E 18:03 → EDHOLD 18:03 → 5E 18:26
PROVIDERS: Emergency Medicine; Family Medicine; Student in an Organized Health Care Education/Training Program; ADMIT Emergency Medicine
DX: A41.89 Other specified sepsis (principal); N17.0 Acute kidney failure with tubular necrosis; N39.0 Urinary tract infection, site not specified; E87.2 Acidosis; E78.5 Hyperlipidemia, unspecified; R65.20 Severe sepsis without septic shock; R26.81 Unsteadiness on feet; E11.65 Type 2 diabetes mellitus with hyperglycemia; D64.9 Anemia, unspecified; K59.00 Constipation, unspecified; R29.6 Repeated falls; N18.2 Chronic kidney disease, stage 2 (mild); I12.9 Hypertensive chronic kidney disease with stage 1 through stage 4 chronic kidney disease, or unspecified chronic kidney disease; E11.22 Type 2 diabetes mellitus with diabetic chronic kidney disease; N40.0 Benign prostatic hyperplasia without lower urinary tract symptoms; Z87.440 Personal history of urinary (tract) infections; Z90.89 Acquired absence of other organs; Z88.0 Allergy status to penicillin; Z79.899 Other long term (current) drug therapy; Z79.84 Long term (current) use of oral hypoglycemic drugs; Z84.1 Family history of disorders of kidney and ureter; Z84.89 Family history of other specified conditions; Q05.9 Spina bifida, unspecified

== ENCOUNTER → 2019-05-10 | Outpatient (CLI) | payer MEDICARE, OTHER ==
[~2019-05-10] MED LIST changes: +ASPIRIN ADULT L81 M2 PO; +CIPRO500 MG PO; +JANUMET XR 50-1 EAC1 PO; +MIRALAX17 GM PO
[2019-05-10 14:59] LABS: BUN 16 mg/dl (7-24); CHLORIDE 104 mmol/L (98-107); CREATININE 0.83 mg/dL (0.70-1.30); POTASSIUM 4.4 mmol/L (3.5-5.1); SODIUM 139 mmol/L (136-145)
== END | disposition home or self-care (01) ==
LOC: LAB 00:15 → RESCLI 00:15
PROVIDERS: Internal Medicine
DX: E78.5 Hyperlipidemia, unspecified (principal); E11.40 Type 2 diabetes mellitus with diabetic neuropathy, unspecified; F03.90 Unspecified dementia, unspecified severity, without behavioral disturbance, psychotic disturbance, mood disturbance, and anxiety; I10 Essential (primary) hypertension; E87.6 Hypokalemia; E55.9 Vitamin D deficiency, unspecified; N39.42 Incontinence without sensory awareness; Z79.899 Other long term (current) drug therapy; Z88.0 Allergy status to penicillin

== ENCOUNTER 2019-05-19 18:18 | Inpatient (IN) | payer MEDICARE, OTHER ==
[2019-05-19] VITALS (9 sets, daily range): BP systolic 89–106; BP diastolic 49–62
[~2019-05-19] VITALS: Ht 172.7 cm; Wt 68.5 kg
[~2019-05-19 18:18] MED LIST changes: -ASPIRIN ADULT L81 M2 PO
--- NOTE | 2019-05-19 18:23 | NUR ---
MERCEDES HUGGER WARMING BLANKET PLACED DIRECTLY AGAINST PT SKIN WITHOUT GOWN AND TURNED TO MAXIMUM DUE TO RECTAL TEMP 94.4. SUPERFICIAL ABRASIONS WITH SWELLING AND REDNESS AND PAIN REPORTED IN BOTH KNEES. PT IS ALERT AND ORIENTED TO PLACE, PERSON AND TIME. WARMED SALINE 500CC BOLUS INFUSION BEGIN BY EMS IS STILL INFUSING. ALL BELONGINGS BAGGED AND NAME APPLIED TO WHITE INCLUDE ONLY HIS PANTS AND A PLUG FOR HIS SUPRAPUBIC CATH. SHIRT WAS DESTROYED.
--- NOTE | 2019-05-19 18:47 | NUR ---
TO BEDSIDE. PROVIDED THE WHITE BAG WITH CLOTHING AND CATH PLUG. PT CONDITION AND ORDERED TESTING EXPLAINED TO HER. PT FEELING BETTER AND "ALOT WARMER".
[2019-05-19 19:53] LABS: ALBUMIN 3.1 gm/dl (3.1-4.5); ALKALINE PHOSPHATASE 84 U/L (45-117); BUN 13 mg/dl (7-24); CHLORIDE 106 mmol/L (98-107); CREATININE 0.82 mg/dL (0.70-1.30); POTASSIUM 3.7 mmol/L (3.5-5.1); SGOT/AST 15 IU/L (3-35); SGPT/ALT 12 U/L (12-78); SODIUM 140 mmol/L (136-145); TOTAL PROTEIN 7.5 gm/dL (6.4-8.2)
[2019-05-19 20:28] LABS: BASO % 0.2 % (0.0-1.0); EOS % 0.3 % (1.0-4.0); HEMATOCRIT 33.1 % (42.0-52.0); HEMOGLOBIN 10.9 g/dl (14.0-18.0); LYMPH # 0.7 10*3/uL (1.3-4.4); LYMPH % 4.9 % (27.0-41.0); MEAN CELL VOLUME 92.5 fl (80.0-94.0); MEAN CORPUSCULAR HGB 30.4 pg (27.0-31.0); MEAN CORPUSCULAR HGB CONC 32.9 g/dl (33.0-37.0); MEAN PLATELET VOLUME 9.1 fl (9.6-12.3); MONO # 0.7 10*3/uL (0.1-1.0); MONO % 5.1 % (3.0-9.0); NEUT # 12.7 10*3/uL (2.3-7.9); NEUT % 88.8 % (47.0-73.0); PLATELET COUNT AUTOMATED 211 10*3/uL (130-400); RED BLOOD COUNT 3.58 10*6/uL (4.50-5.90); RED CELL DISTRI WIDTH 16.1 % (0-14.5); WHITE BLOOD COUNT 14.3 10*3/uL (4.8-10.8)
[2019-05-19 20:43] LABS: ACT PARTIAL THROMBO TIME 24.7 SECONDS (20.0-32.1)
[2019-05-19 20:44] LABS: LIPASE 60 U/L (73-393)
[2019-05-19 20:46] LABS: TROPONIN I 0.105 ng/ml (<0.045)
--- NOTE | 2019-05-19 20:46 | NUR ---
NOTIFIED BY LAB PTS TROPONIN 0.0105. DR LARSEN NOTIFIED.
--- NOTE | 2019-05-19 21:25 | NUR ---
CRITICAL LACTIC ACID 4.3 RECEIVED BY LAB, DR TOVAR AND LEONARDO ROBLERO
--- NOTE | 2019-05-19 21:25 | NUR ---
TEMPERATURE RECHECKED. 98.9 RECTALLY, MERCEDES HUGGER REMOVED AND PT PLACED IN WARM GOWN AND WARM BLANKETS COVERED OVER PT
[2019-05-20 00:03] VITALS: BP 90/52
[2019-05-20 00:15] VITALS: BP 113/70
--- NOTE | 2019-05-20 00:15 | NUR ---
A 78, admitted to , under the services of DESTINY Pineda DO with a diagnosis of ELEVATED TROPONIN, HYPOTHERMIA. Chief complaint is WEAKNESS. Patient arrived via stretcher from ER. Monitor applied. Initial assessment completed. Vital signs taken and recorded. DESTINY PINEDA DO notified of admission to the unit. Orders received. See assessment for past medical history, medications and allergies. Patient and/or family oriented to unit. [address] visitation policy reviewed. Clothing/patient valuable form completed. LISSETT URIBE
--- NOTE | 2019-05-20 00:16 | NUR ---
PT HAS ABRASIONS TO BOTH KNEES. NO WOUNDS.
[2019-05-20 00:38] LABS: BILIRUBIN NEGATIVE (NEGATIVE); BLOOD 1+ (NEGATIVE); CLARITY SL CLOUDY (CLEAR); COLOR YELLOW (YELLOW); GLUCOSE NEGATIVE (NEGATIVE); KETONE 1+ (NEGATIVE); LEUKO ESTERASE 1+ (NEGATIVE); NITRITE POSITIVE (NEGATIVE); PH 5.5 (5.0-9.0); SPECIFIC GRAVITY >= 1.030 (1.005-1.030); UROBILINOGEN 0.2 E.U./dl (0.2-1.0)
[2019-05-20 00:50] LABS: BACTERIA 2+; WBC TNTC wbc/hpf (0-5); YEAST 3+
--- NOTE | 2019-05-20 01:09 | NUR ---
NOTIFIED OF TROPONIN OF 0.456. NO NEW ORDERS RECEIVED.
--- NOTE | 2019-05-20 01:50 | NUR ---
ANSWERING SERVICE NOTIFIED OF NEW CONSULT.
--- NOTE | 2019-05-20 02:28 | NUR ---
PT REFUSING BLOOD WORK. INFORMED. OK TO CANCEL TROPONINS. PER RETRY WITH NEXT SCHEDULED BLOOD DRAW.
--- NOTE | 2019-05-20 03:06 | NUR ---
PT STILL REFUSING BLOOD WORK. INFORMED. LAB WILL RETRY AT NEXT SCHEDULED TIME.
[2019-05-20 06:17] LABS: BASO % 0.3 % (0.0-1.0); EOS # 0.4 10*3/uL (0.0-0.4); EOS % 4.7 % (1.0-4.0); HEMATOCRIT 28.6 % (42.0-52.0); HEMOGLOBIN 9.3 g/dl (14.0-18.0); LYMPH # 2.6 10*3/uL (1.3-4.4); LYMPH % 28.2 % (27.0-41.0); MEAN CELL VOLUME 92.9 fl (80.0-94.0); MEAN CORPUSCULAR HGB 30.2 pg (27.0-31.0); MEAN CORPUSCULAR HGB CONC 32.5 g/dl (33.0-37.0); MEAN PLATELET VOLUME 9.5 fl (9.6-12.3); MONO # 0.7 10*3/uL (0.1-1.0); MONO % 7.3 % (3.0-9.0); NEUT # 5.4 10*3/uL (2.3-7.9); NEUT % 59.1 % (47.0-73.0); PLATELET COUNT AUTOMATED 212 10*3/uL (130-400); RED BLOOD COUNT 3.08 10*6/uL (4.50-5.90); RED CELL DISTRI WIDTH 16.6 % (0-14.5); WHITE BLOOD COUNT 9.1 10*3/uL (4.8-10.8)
--- NOTE | 2019-05-20 06:38 | NUR ---
NOTIFIED OF CRITICAL TROPONIN OF 0.839. NO NEW ORDERS RECEIVED.
[2019-05-20 06:47] LABS: ALBUMIN 2.7 gm/dl (3.1-4.5); ALKALINE PHOSPHATASE 71 U/L (45-117); BUN 13 mg/dl (7-24); CHLORIDE 108 mmol/L (98-107); CHOLESTEROL 103 mg/dL (<200); CREATININE 0.62 mg/dL (0.70-1.30); HDL CHOLESTEROL 37 mg/dl (40-60); LDL CHOLESTEROL 43 mg/dL (9-159); PHOSPHOROUS 3.1 mg/dL (2.5-4.9); POTASSIUM 3.8 mmol/L (3.5-5.1); SGOT/AST 18 IU/L (3-35); SGPT/ALT 12 U/L (12-78); SODIUM 141 mmol/L (136-145); TOTAL PROTEIN 6.4 gm/dL (6.4-8.2); TRIGLYCERIDES 114 mg/dl (<150); VLDL CHOLESTEROL 23 mg/dL (6-40)
[2019-05-20 08:00] VITALS: BP 96/53
[2019-05-20 08:25] LABS: VITAMIN D, 25-HYDROXY 16.5 ng/mL (30-100)
[2019-05-20 12:00] VITALS: BP 100/53
--- NOTE | 2019-05-20 13:37 | NUR ---
MED REC DISCUSSED WITH PT , MED REC UPDATED.
[2019-05-20 16:00] VITALS: BP 101/57
--- NOTE | 2019-05-20 16:00 | NUR ---
DR SAINI MADE AWARE THAT MED REC HAS BEEN UPDATED.
[2019-05-20 20:00] VITALS: BP 99/61
[2019-05-21] VITALS: BP 102/64
--- NOTE | 2019-05-21 | NUR ---
PATIENT REFUSING LOVENOX INJECTION STATING THAT IT HURTS AND HE DOESNT WANT IT. PATIENT EDUCATED ON LOVENOX THERAPY AND BENEFITS R/T HIS CONDITION AND STILL REFUSES.
[2019-05-21 06:13] LABS: BASO # 0.1 10*3/uL (0.0-0.1); BASO % 0.9 % (0.0-1.0); EOS % 12.6 % (1.0-4.0); HEMATOCRIT 29.2 % (42.0-52.0); HEMOGLOBIN 9.4 g/dl (14.0-18.0); LYMPH # 1.9 10*3/uL (1.3-4.4); LYMPH % 23.2 % (27.0-41.0); MEAN CELL VOLUME 92.7 fl (80.0-94.0); MEAN CORPUSCULAR HGB 29.8 pg (27.0-31.0); MEAN CORPUSCULAR HGB CONC 32.2 g/dl (33.0-37.0); MEAN PLATELET VOLUME 9.6 fl (9.6-12.3); MONO # 0.5 10*3/uL (0.1-1.0); MONO % 6.3 % (3.0-9.0); NEUT # 4.6 10*3/uL (2.3-7.9); NEUT % 56.8 % (47.0-73.0); PLATELET COUNT AUTOMATED 193 10*3/uL (130-400); RED BLOOD COUNT 3.15 10*6/uL (4.50-5.90); RED CELL DISTRI WIDTH 16.4 % (0-14.5); WHITE BLOOD COUNT 8.1 10*3/uL (4.8-10.8)
[2019-05-21 06:24] LABS: BUN 8 mg/dl (7-24); CHLORIDE 109 mmol/L (98-107); CREATININE 0.57 mg/dL (0.70-1.30); POTASSIUM 3.6 mmol/L (3.5-5.1); SODIUM 142 mmol/L (136-145)
[2019-05-21 08:00] VITALS: BP 110/64
--- NOTE | 2019-05-21 08:00 | NUR ---
PT IS RESTING COMFORTABLY IN BED. NO C/O PAIN. PLEASANT AND COOPERATIVE. AWOKE EASILY FOR MORNING ASSESSMENT. REMAINS NPO FOR STRESS TEST. SANDRA MAYER SPNRCC
--- NOTE | 2019-05-21 08:11 | NUR ---
PHYSICAL THERAPY Screen received as well as orders for PT will follow thank you. Stephanie Nelson PT
--- NOTE | 2019-05-21 08:37 | NUR ---
Nursing screen and Occupational Therapy referral received. Thank you. Becki Fernandez OTR/L
--- NOTE | 2019-05-21 09:00 | NUR ---
Director Of Sales Support in to talk to patient. Patient states lives at home with . There are few steps in the home. Physician: [facility]acy[facility] Home health services: none Patient's level of ADLs: MINIMAL ASSIST Patient has working utilities: well pump has been broken, electric is working DME: rollator walker, cane Follow-up physician's appointment after d/c: will be made by hospitalist nurse director upon discharge Does patient want to access PORTAL?: no Discharge plan discussed with patient, he states he lives at home with his and grandson, he states he is independent in adls and ambulation, discussed with him a discharge plan including returning to a short term long term for rehab prior to returning home, patient stated he wanted to go home, he didn't feel there was any reason he needed to return to but case management could talk with his to be sure, case management called patient's and left a voicemail for her to contact case management in regards to patient's discharge plan, case management will follow. DEMARCUS IBARRA
--- NOTE | 2019-05-21 09:38 | NUR ---
PT RESTING COMFORTABLY IN BED. REMAINS NPO FOR STRESS TEST. SANDRA MAYER SPCC
--- NOTE | 2019-05-21 10:00 | NUR ---
case management also discussed with patient not having any running water, he stated his pump to his well quit working and his grandson was having the pump replaced today, case management will follow
--- NOTE | 2019-05-21 10:20 | NUR ---
TO CARDIAC REHAB AQCCOMPANIED BY TRANSPORT SANDRA MAYER SPNRCC
--- NOTE | 2019-05-21 10:26 | NUR ---
Patient out of his room for a stress test and not available for OT evaluation. Becki Fernandez OTR/L
--- NOTE | 2019-05-21 10:30 | NUR ---
PHYSICAL THERAPY Pt unavailable for assessement as pt at a stress test will follow Stephanie Nelson PT
--- NOTE | 2019-05-21 11:32 | NUR ---
INFORMED CONSENT SIGNED FOR LEXISCAN STRESS TEST WITH DR. MOLINA. RESTING EKG NSR, HR79, BP 122/66. PULSE OX 100% AND LUNG CLEAR. COMPLETED ONE MINUTE OF LEXISCAN PROTOCOL RECEIVING LEXISCAN 0.4MG OVER 10 SECONDS. PVC'S NOTED WITH NO ST CHANGES. PT C/O OF DIZZINESS AND FEELING FUNNY. LAST RECOVERY HR 96, BP 108/54. WAITING NUCLEAR SCANNING IN STABLE CONDITION.
[2019-05-21 12:00] VITALS: BP 130/64
--- NOTE | 2019-05-21 12:45 | NUR ---
BACK FROM STRESS TEST, FAMILY AT THE BEDSIDE, NO COMPLAINTS VOICED SANDRA CARABALLO
--- NOTE | 2019-05-21 13:27 | NUR ---
PT RESTING IN BED VISITING WITH FAMILY. PLEASANT AND COOPERATIVE. SANDRA MAYER SPNRCC
--- NOTE | 2019-05-21 14:36 | NUR ---
PHYSICAL THERAPY Eyal completed full report to follow moderate level of complexity 51311 Pt would benefit from SNF but states he will go home w and has grandson at home to help him, but agreeable to "if I need it" will follow. Stephanie Nelson PT
--- NOTE | 2019-05-21 14:55 | NUR ---
Occupational Therapy evaluation completed on 4 with full eval to follow. Precautions include h/o falls, fall risk;bed alarm,impulsive,igfford catheter,moderate complexity level 29267. Recommend short SNF stay, if refuses then home w/ 24 hr supervision/assist and home health SN,OT,PT. Thank you. Becki Fernandez OTR/l
--- NOTE | 2019-05-21 14:55 | NUR ---
Patient not available for Occupational Therapy as he was eating lunch. OTR will recheck at a later time. Becki Fernandez OTR/l
--- NOTE | 2019-05-21 15:43 | NUR ---
Resident with Dr. Santos called states that stress test is negative and pt can be dc from his standpoint.
[2019-05-21 16:00] VITALS: BP 102/69
[2019-05-21 20:00] VITALS: BP 101/60
[2019-05-22] VITALS: BP 104/67
--- NOTE | 2019-05-22 01:07 | NUR ---
PATIENT SLEEPING. NO DISTRESS NOTED. CALL LIGHT WITHIN REACH, WILL MONITOR
--- NOTE | 2019-05-22 01:28 | NUR ---
24 HR chart check completed.
[2019-05-22 08:00] VITALS: BP 97/67
[2019-05-22 08:42] VITALS: BP 108/61
--- NOTE | 2019-05-22 08:45 | NUR ---
case management received a call from patient's Jw, she stated patient will return home with her when medically stable, discussed with her VNA and she stated he had [facility] when he was discharged from [facility] but she didn't feel he needed any services at this time, also discussed with her the well pump and she stated a new one was being installed today, case managment will follow for any needs
--- NOTE | 2019-05-22 08:50 | NUR ---
OT NOTE Pt was seen this A.M. 1:1 for 30 minute OT session. Upon arrival pt was supine in bed. Pt identified by name and and had no complaints at this time. Pt transferred supine to sit EOB with Stas for assist with UB. Sit to stand then completed from bed level with Stas and use of w/w for UE support. Functional mobility was then completed around the room with CGA and use of w/w while gathering clothing needed for ADL task. Functional mobility was then completed to the bathroom with CGA and use of w/w. There he transferred on to standard commode with CGA and use of grab bar for UE support. Pt doffed gown with Stas, donned new underpants and pants with tSas for assist with donning over his feet, and donned new shirt with SBA. Sit to stand then completed from commode level with Stas. Pt was left sitting upright in the recliner with call ligh tin hand, tray table in place, and body alarm activated for safety. Continue with rec D/C plan to SNF. JAXON Funes/Shazia
--- NOTE | 2019-05-22 10:15 | NUR ---
PHYSICAL THERAPY Patient was resting supine in bed this am when approached for therapy visit and stated he wanted to continue resting in anticipation of possible d/c this date. Patient remained in bed and will continue per POC as able. Tao Wilde, SENIOR WATER RESOURCES ENGINEER
[2019-05-22] MEDS ORDERED: ASPIRIN ADULT L81 M2 PO (11:42)
[2019-05-22] MEDS ORDERED: CIPRO500 MG PO (11:43)
--- NOTE | 2019-05-22 12:31 | NUR ---
Discharge instructions reviewed with patient/family. Patient receptive and verbalizes understanding. Follow-up care arranged. Written instructions given to patient/family. STEFAN WELLS
--- NOTE | 2019-05-23 07:39 | NUR ---
PHYSICAL THERAPY CO-SIGN I approve of the Physical Therapy notes written above. Stephanie Nelson PT
--- NOTE | 2019-05-23 15:25 | NUR ---
OCCUPATIONAL THERAPY CO-SIGN I approve of the Occupational Therapy notes written above. DIANE HUNG OTR/Shazia
== END 2019-05-22 12:31 | disposition home or self-care (01) | DRG 871 ==
LOC: ED 18:18 → 4E 22:09 → EDHOLD 22:09 → 4E 23:01
PROVIDERS: Emergency Medicine; Emergency Medicine Emergency Medical Services; Internal Medicine; ADMIT Internal Medicine
PROC: 3E073KZ Introduction of Other Diagnostic Substance into Coronary Artery, Percutaneous Approach (ICD-10-PCS; principal; 2019-05-21)
PROC: 4A02XM4 Measurement of Cardiac Total Activity, External Approach (ICD-10-PCS; principal; 2019-05-21)
DX: A41.9 Sepsis, unspecified organism (principal); I21.A1 Myocardial infarction type 2; N39.0 Urinary tract infection, site not specified; T68.XXXA Hypothermia, initial encounter; R65.20 Severe sepsis without septic shock; E83.42 Hypomagnesemia; D64.9 Anemia, unspecified; I10 Essential (primary) hypertension; E78.5 Hyperlipidemia, unspecified; N40.0 Benign prostatic hyperplasia without lower urinary tract symptoms; B95.2 Enterococcus as the cause of diseases classified elsewhere; E87.6 Hypokalemia; E11.65 Type 2 diabetes mellitus with hyperglycemia; F03.90 Unspecified dementia, unspecified severity, without behavioral disturbance, psychotic disturbance, mood disturbance, and anxiety; S80.212A Abrasion, left knee, initial encounter; S80.211A Abrasion, right knee, initial encounter; W18.30XA Fall on same level, unspecified, initial encounter; Y93.89 Activity, other specified; Y92.89 Other specified places as the place of occurrence of the external cause; Y99.8 Other external cause status; Z86.14 Personal history of Methicillin resistant Staphylococcus aureus infection; Z98.49 Cataract extraction status, unspecified eye; Z88.0 Allergy status to penicillin; Z84.1 Family history of disorders of kidney and ureter; Z84.89 Family history of other specified conditions; Z79.899 Other long term (current) drug therapy

== ENCOUNTER → 2019-06-12 | Outpatient (CLI) | payer MEDICARE, OTHER ==
[~2019-06-12] MED LIST changes: +ASPIRIN ADULT L81 M2 PO
[2019-06-12 10:09] LABS: BASO # 0.1 10*3/uL (0.0-0.1); BASO % 0.6 % (0.0-1.0); EOS # 1.8 10*3/uL (0.0-0.4); EOS % 13.9 % (1.0-4.0); LYMPH # 1.6 10*3/uL (1.3-4.4); LYMPH % 12.3 % (27.0-41.0); MEAN CELL VOLUME 95.6 fl (80.0-94.0); MEAN CORPUSCULAR HGB CONC 32.4 g/dl (33.0-37.0); MEAN PLATELET VOLUME 9.2 fl (9.6-12.3); MONO # 0.8 10*3/uL (0.1-1.0); MONO % 5.9 % (3.0-9.0); NEUT # 8.7 10*3/uL (2.3-7.9); NEUT % 66.9 % (47.0-73.0); PLATELET COUNT AUTOMATED 241 10*3/uL (130-400); RED BLOOD COUNT 3.87 10*6/uL (4.50-5.90); RED CELL DISTRI WIDTH 16.1 % (0-14.5)
[2019-06-12 10:38] LABS: ALBUMIN 3.5 gm/dl (3.1-4.5); ALKALINE PHOSPHATASE 110 U/L (45-117); BUN 18 mg/dl (7-24); CHLORIDE 104 mmol/L (98-107); CREATININE 0.96 mg/dL (0.70-1.30); POTASSIUM 4.4 mmol/L (3.5-5.1); SGOT/AST 14 IU/L (3-35); SGPT/ALT 18 U/L (12-78); SODIUM 137 mmol/L (136-145)
== END | disposition home or self-care (01) ==
LOC: RESCLI 02:18
PROVIDERS: Internal Medicine
DX: Z09 Encounter for follow-up examination after completed treatment for conditions other than malignant neoplasm (principal); E78.5 Hyperlipidemia, unspecified; E11.40 Type 2 diabetes mellitus with diabetic neuropathy, unspecified; F03.90 Unspecified dementia, unspecified severity, without behavioral disturbance, psychotic disturbance, mood disturbance, and anxiety; I10 Essential (primary) hypertension; N39.42 Incontinence without sensory awareness; R63.4 Abnormal weight loss; D64.9 Anemia, unspecified; Z79.899 Other long term (current) drug therapy; Z93.59 Other cystostomy status; Z90.89 Acquired absence of other organs; Z88.0 Allergy status to penicillin

== ENCOUNTER → 2019-06-13 | Outpatient (CLI) | payer MEDICARE, OTHER ==
[2019-06-13 11:32] LABS: BILIRUBIN NEGATIVE (NEGATIVE); BLOOD 2+ (NEGATIVE); CLARITY SL CLOUDY (CLEAR); COLOR YELLOW (YELLOW); GLUCOSE NEGATIVE (NEGATIVE); KETONE NEGATIVE (NEGATIVE); LEUKO ESTERASE 1+ (NEGATIVE); NITRITE NEGATIVE (NEGATIVE); SPECIFIC GRAVITY 1.025 (1.005-1.030); UROBILINOGEN 0.2 E.U./dl (0.2-1.0)
[2019-06-13 11:58] LABS: BACTERIA 2+; RBC 21-30 rbc/hpf (0-2); WBC TNTC wbc/hpf (0-5)
[2019-06-13 11:59] LABS: YEAST 1+
== END | disposition home or self-care (01) ==
LOC: LAB 11:08
PROVIDERS: Family Medicine
DX: N39.0 Urinary tract infection, site not specified (principal)

== ENCOUNTER → 2019-07-13 | Outpatient (CLI) | payer MEDICARE, OTHER | END | disposition home or self-care (01) | LOC: LAB 12:36 → CT 12:36 | DX: R31.29 Other microscopic hematuria (principal) ==

== ENCOUNTER → 2019-08-08 | Outpatient (CLI) | payer MEDICARE, OTHER ==
[2019-08-08 13:52] LABS: BASO # 0.1 10*3/uL (0.0-0.1); BASO % 0.8 % (0.0-1.0); EOS # 1.3 10*3/uL (0.0-0.4); EOS % 12.8 % (1.0-4.0); HEMATOCRIT 39.2 % (42.0-52.0); HEMOGLOBIN 12.8 g/dl (14.0-18.0); LYMPH % 20.7 % (27.0-41.0); MEAN CELL VOLUME 94.9 fl (80.0-94.0); MEAN CORPUSCULAR HGB CONC 32.7 g/dl (33.0-37.0); MEAN PLATELET VOLUME 9.7 fl (9.6-12.3); MONO # 0.7 10*3/uL (0.1-1.0); MONO % 7.4 % (3.0-9.0); NEUT # 5.7 10*3/uL (2.3-7.9); NEUT % 57.9 % (47.0-73.0); PLATELET COUNT AUTOMATED 234 10*3/uL (130-400); RED BLOOD COUNT 4.13 10*6/uL (4.50-5.90); RED CELL DISTRI WIDTH 14.6 % (0-14.5); WHITE BLOOD COUNT 9.8 10*3/uL (4.8-10.8)
[2019-08-08 14:26] LABS: ALBUMIN 3.8 gm/dl (3.1-4.5); ALKALINE PHOSPHATASE 115 U/L (45-117); BUN 18 mg/dl (7-24); CHLORIDE 103 mmol/L (98-107); CREATININE 1.16 mg/dL (0.70-1.30); POTASSIUM 4.7 mmol/L (3.5-5.1); SGOT/AST 14 IU/L (3-35); SGPT/ALT 18 U/L (12-78); SODIUM 137 mmol/L (136-145); TOTAL PROTEIN 8.8 gm/dL (6.4-8.2)
[2019-08-09 12:04] LABS: CREATININE,URINE 108.2 mg/dL (Not Estab.)
== END | disposition home or self-care (01) ==
LOC: RESCLI 00:17
PROVIDERS: Hospitalist
DX: E11.40 Type 2 diabetes mellitus with diabetic neuropathy, unspecified (principal); E78.5 Hyperlipidemia, unspecified; I10 Essential (primary) hypertension; F03.90 Unspecified dementia, unspecified severity, without behavioral disturbance, psychotic disturbance, mood disturbance, and anxiety; N39.42 Incontinence without sensory awareness; D64.9 Anemia, unspecified; B36.9 Superficial mycosis, unspecified; Z93.59 Other cystostomy status; R63.4 Abnormal weight loss; Z79.899 Other long term (current) drug therapy

== ENCOUNTER 2019-10-10 18:57 | Emergency (ER) | payer MEDICARE, OTHER ==
[~2019-10-10] VITALS: Ht 175.2 cm; Wt 72.6 kg
[2019-10-10 19:54] LABS: BASO # 0.1 10*3/uL (0.0-0.1); BASO % 0.5 % (0.0-1.0); EOS # 1.3 10*3/uL (0.0-0.4); EOS % 8.5 % (1.0-4.0); HEMATOCRIT 37.9 % (42.0-52.0); LYMPH # 1.4 10*3/uL (1.3-4.4); LYMPH % 9.1 % (27.0-41.0); MEAN CELL VOLUME 93.3 fl (80.0-94.0); MEAN CORPUSCULAR HGB 31.3 pg (27.0-31.0); MEAN CORPUSCULAR HGB CONC 33.5 g/dl (33.0-37.0); MEAN PLATELET VOLUME 8.8 fl (9.6-12.3); MONO # 0.8 10*3/uL (0.1-1.0); MONO % 5.1 % (3.0-9.0); NEUT # 11.9 10*3/uL (2.3-7.9); NEUT % 76.4 % (47.0-73.0); PLATELET COUNT AUTOMATED 269 10*3/uL (130-400); RED BLOOD COUNT 4.06 10*6/uL (4.50-5.90); RED CELL DISTRI WIDTH 14.3 % (0-14.5); WHITE BLOOD COUNT 15.5 10*3/uL (4.8-10.8)
[2019-10-10 20:00] LABS: BILIRUBIN NEGATIVE (NEGATIVE); BLOOD 1+ (NEGATIVE); CLARITY CLOUDY (CLEAR); COLOR YELLOW (YELLOW); GLUCOSE NEGATIVE (NEGATIVE); KETONE NEGATIVE (NEGATIVE); LEUKO ESTERASE 2+ (NEGATIVE); NITRITE POSITIVE (NEGATIVE); UROBILINOGEN 0.2 E.U./dl (0.2-1.0); WBC TNTC wbc/hpf (0-5)
[2019-10-10 20:01] LABS: BACTERIA 2+
[2019-10-10 20:08] LABS: ALBUMIN 3.4 gm/dl (3.1-4.5); ALKALINE PHOSPHATASE 107 U/L (45-117); BUN 19 mg/dl (7-24); CHLORIDE 104 mmol/L (98-107); CREATININE 0.86 mg/dL (0.70-1.30); LIPASE 63 U/L (73-393); POTASSIUM 3.9 mmol/L (3.5-5.1); SGOT/AST 12 IU/L (3-35); SGPT/ALT 20 U/L (12-78); SODIUM 140 mmol/L (136-145); TOTAL PROTEIN 8.2 gm/dL (6.4-8.2)
[2019-10-10] MEDS ORDERED: OMNICEF300 MG PO (21:41)
== END 2019-10-10 21:55 | disposition home or self-care (01) ==
LOC: ED 18:57
PROVIDERS: Physician Assistant
DX: N39.0 Urinary tract infection, site not specified (principal); K59.00 Constipation, unspecified; E11.9 Type 2 diabetes mellitus without complications; I10 Essential (primary) hypertension; Z88.0 Allergy status to penicillin; Z79.899 Other long term (current) drug therapy; Z79.82 Long term (current) use of aspirin; Z79.1 Long term (current) use of non-steroidal anti-inflammatories (NSAID)

== ENCOUNTER → 2019-11-20 | Outpatient (CLI) | payer MEDICARE, OTHER ==
[~2019-11-20] MED LIST changes: +OMNICEF300 MG PO
== END | disposition home or self-care (01) ==
LOC: RESCLI 01:02
DX: E11.40 Type 2 diabetes mellitus with diabetic neuropathy, unspecified (principal); E78.5 Hyperlipidemia, unspecified; F03.90 Unspecified dementia, unspecified severity, without behavioral disturbance, psychotic disturbance, mood disturbance, and anxiety; I10 Essential (primary) hypertension; N39.42 Incontinence without sensory awareness; R63.4 Abnormal weight loss; D64.9 Anemia, unspecified; Z93.59 Other cystostomy status; Z79.82 Long term (current) use of aspirin; Z79.899 Other long term (current) drug therapy; Z98.890 Other specified postprocedural states; Z88.0 Allergy status to penicillin

== ENCOUNTER → 2020-01-10 | Outpatient (CLI) | payer MEDICARE, OTHER | END | disposition home or self-care (01) | LOC: RESCLI 02:14 | DX: E11.40 Type 2 diabetes mellitus with diabetic neuropathy, unspecified (principal); F03.90 Unspecified dementia, unspecified severity, without behavioral disturbance, psychotic disturbance, mood disturbance, and anxiety; E78.5 Hyperlipidemia, unspecified; I10 Essential (primary) hypertension; E55.9 Vitamin D deficiency, unspecified; K59.00 Constipation, unspecified; L98.499 Non-pressure chronic ulcer of skin of other sites with unspecified severity; Z79.899 Other long term (current) drug therapy; Z79.82 Long term (current) use of aspirin; Z98.890 Other specified postprocedural states; Z95.828 Presence of other vascular implants and grafts; Z88.0 Allergy status to penicillin ==

== ENCOUNTER 2020-03-09 11:00 | Inpatient (IN) | payer MEDICARE, OTHER ==
[~2020-03-09] VITALS: Ht 172.7 cm; Wt 66.3 kg
[2020-03-09 11:06] VITALS: BP 105/59
[2020-03-09 11:53] LABS: BASO % 0.3 % (0.0-1.0); EOS # 0.8 10*3/uL (0.0-0.4); EOS % 6.6 % (1.0-4.0); HEMATOCRIT 34.9 % (42.0-52.0); LYMPH # 1.3 10*3/uL (1.3-4.4); LYMPH % 10.9 % (27.0-41.0); MEAN CELL VOLUME 91.8 fl (80.0-94.0); MEAN CORPUSCULAR HGB 28.7 pg (27.0-31.0); MEAN CORPUSCULAR HGB CONC 31.2 g/dl (33.0-37.0); MEAN PLATELET VOLUME 8.6 fl (9.6-12.3); MONO # 0.5 10*3/uL (0.1-1.0); MONO % 4.2 % (3.0-9.0); NEUT # 9.4 10*3/uL (2.3-7.9); NEUT % 77.5 % (47.0-73.0); PLATELET COUNT AUTOMATED 343 10*3/uL (130-400); RED CELL DISTRI WIDTH 15.1 % (0-14.5); WHITE BLOOD COUNT 12.1 10*3/uL (4.8-10.8)
[2020-03-09 12:04] LABS: ACT PARTIAL THROMBO TIME 27.6 SECONDS (20.0-32.1); INTERNATIONAL NORM RATIO 1.1 (2.0-3.5)
[2020-03-09 12:10] LABS: ALBUMIN 3.1 gm/dl (3.1-4.5); ALKALINE PHOSPHATASE 110 U/L (45-117); BUN 15 mg/dl (7-24); CHLORIDE 100 mmol/L (98-107); CREATININE 0.86 mg/dL (0.70-1.30); LIPASE 99 U/L (73-393); POTASSIUM 3.9 mmol/L (3.5-5.1); SGOT/AST 10 IU/L (3-35); SGPT/ALT 13 U/L (12-78); SODIUM 134 mmol/L (136-145); TOTAL PROTEIN 8.7 gm/dL (6.4-8.2)
[2020-03-09 12:11] LABS: TROPONIN I < 0.015 ng/ml (<0.045)
[2020-03-09 12:24] LABS: BILIRUBIN Negative (Negative); BLOOD 2+ (Negative); CLARITY Turbid (Clear); COLOR Yellow (Yellow); GLUCOSE Negative (Negative); KETONE Negative (Negative); LEUKO ESTERASE 3+ (Negative); NITRITE Negative (Negative)
[2020-03-09 12:31] LABS: WBC TNTC wbc/hpf (0-5)
--- NOTE | 2020-03-09 12:51 | NUR ---
PT POSITIONED FOR COMFORT WATCHING T.V. WITH [employer]AF[employer]Y [employer] INTACT AND CALL LIGHT WITHIN REACH.
--- NOTE | 2020-03-09 13:12 | NUR ---
PT'S FAMILY UPDATED IN LOBBY AND PHONE NUMBNERS PROVIDED LISA [phone] & ARGELIA(PT'S DAUGHTER) [phone] D/T FAMILY LEAVING AND REQUESTING TO BE CALLED WITH PT'S ROOM NUMBER AND CONDITION @ TIME OF ADMITTANCE.
[2020-03-09 13:14] VITALS: BP 100/60
--- NOTE | 2020-03-09 14:16 | NUR ---
PT WITH NAUSEA @ THIS TIME,RAMIREZ PEDRAZA DNP NOTIFIED.PT REMAINS W/O ACUTE DISTRESS NOTED AWAITING FURTHER PLAN OF CARE.
[2020-03-09 15:01] VITALS: BP 96/54
[2020-03-09 15:23] VITALS: BP 105/57
--- NOTE | 2020-03-09 15:23 | NUR ---
Time: 1522 A 79 year old MALE admitted to 5E under services of KARI MAO DO. Pt. arrived via ambulatory from ER. Chief complaint: WEAKNESS. HANANE SAINI A
[2020-03-09] MEDS ORDERED: VITAMIN D3125 MCG PO (15:44)
[2020-03-09] MEDS ORDERED: JANUMET XR 1001 EACH PO (15:45)
--- NOTE | 2020-03-09 15:48 | NUR ---
MED REC UPDATED PER POLICY.
--- NOTE | 2020-03-09 16:33 | NUR ---
REFUSED LACTIC ACID RE DRAW.
--- NOTE | 2020-03-09 17:04 | NUR ---
PT REQUSTING TO BE DNRCC. INFORMED. SAID HE WOULD CALL HIS WIF TO DISCUSS PT HAS A HISTORY OF DEMENTIA BUT IS CURRENTLY AAOx3 BUT FORGETFUL. ALSO SAID HE WOULD DISCUSS WITH .
--- NOTE | 2020-03-09 19:48 | NUR ---
CHART CHECK COMPLETE.
[2020-03-09 20:00] VITALS: BP 98/55
--- NOTE | 2020-03-09 20:30 | NUR ---
ASSUMED CARE OF PATIENT. PATIENT IS AAOX3 RESTING IN BED WITH EASY AND REGULAR RESPERS ON ROOM AIR. ASSESSMENT IS COMPLETE WITH NO C/O OR S/S OF DISTRESS NOTED AT THIS TIME. BED IS LOW, LOCKED, ALARMED, AND CALL LIGHT IS WITHIN REACH. WILL CONTINUE TO MONITOR, SEE INTERVENTIONS.
--- NOTE | 2020-03-09 21:43 | NUR ---
PATIENT EXPRESSES CONCERNS ABOUT WANTING TO GO HOME. REASSURANCE PROVIDED.
[2020-03-10] VITALS: BP 90/42
--- NOTE | 2020-03-10 03:00 | NUR ---
PATIENT SHOWERED AND BED LINENS CHANGED. BED IS LOW, LOCKED, ALARMED, AND CALL LIGHT IS WITHIN REACH.
[2020-03-10 06:27] LABS: BASO # 0.1 10*3/uL (0.0-0.1); BASO % 0.4 % (0.0-1.0); EOS # 0.6 10*3/uL (0.0-0.4); EOS % 4.6 % (1.0-4.0); HEMATOCRIT 28.4 % (42.0-52.0); LYMPH # 2.1 10*3/uL (1.3-4.4); LYMPH % 15.9 % (27.0-41.0); MEAN CELL VOLUME 90.4 fl (80.0-94.0); MEAN CORPUSCULAR HGB 28.3 pg (27.0-31.0); MEAN CORPUSCULAR HGB CONC 31.3 g/dl (33.0-37.0); MEAN PLATELET VOLUME 8.9 fl (9.6-12.3); MONO # 0.7 10*3/uL (0.1-1.0); MONO % 5.5 % (3.0-9.0); NEUT # 9.5 10*3/uL (2.3-7.9); NEUT % 73.1 % (47.0-73.0); PLATELET COUNT AUTOMATED 297 10*3/uL (130-400); RED BLOOD COUNT 3.14 10*6/uL (4.50-5.90); RED CELL DISTRI WIDTH 15.6 % (0-14.5); WHITE BLOOD COUNT 12.9 10*3/uL (4.8-10.8)
[2020-03-10 06:43] LABS: ALBUMIN 2.4 gm/dl (3.1-4.5); ALKALINE PHOSPHATASE 81 U/L (45-117); BUN 14 mg/dl (7-24); CHLORIDE 107 mmol/L (98-107); CHOLESTEROL 86 mg/dL (<200); CREATININE 0.72 mg/dL (0.70-1.30); FREE T4 0.97 ng/dl (0.76-1.46); HDL CHOLESTEROL 32 mg/dl (40-60); LDL CHOLESTEROL 30 mg/dL (9-159); POTASSIUM 3.8 mmol/L (3.5-5.1); SGOT/AST 11 IU/L (3-35); SGPT/ALT 10 U/L (12-78); SODIUM 139 mmol/L (136-145); TOTAL PROTEIN 6.7 gm/dL (6.4-8.2); TRIGLYCERIDES 118 mg/dl (<150); VLDL CHOLESTEROL 24 mg/dL (6-40)
[2020-03-10 06:47] LABS: THYROID STIM HORMONE (HS) 0.683 uIU/ml (0.358-4.75)
--- NOTE | 2020-03-10 07:30 | NUR ---
PT RESTING IN BED.VOICES NO CONCERNS AT THIS TIME. RESPS EASY AND NON LABORED. NO S/S OF DISTRSS NOTED. VSS. WHITE BOARD UPDATED. POC DISCUSSED W PT. A/O X3. HSX DEMENTIA-PT IS FORGETFUL.CURRENTLY DENIES ANY URINARY S/S. SUPRAPUBIC SITE DRESSING C/D/I AT THIS TIME. PER PT INSERTION SITE LEAKS ALOT OF "WATER". PT ALSO STATES HE WANTS TO GO HOME TODAY. WILL CONTINUE TO MONITOR. CALL LIGHT WITHIN REACH. BED ALARM ON.
--- NOTE | 2020-03-10 11:48 | NUR ---
SCIENTIFIC LINGUIST FAXED REFERRAL TO [facility]. WILL NEED FACE TO FACE.
[2020-03-10 12:00] VITALS: BP 97/56
--- NOTE | 2020-03-10 13:13 | NUR ---
Upholstery Repairer in to talk to patient. Patient states lives at HOME with . There are 2 OUTSIDE steps in the home. Physician: [facility] Pharmacy: [facility] Home health services: NONE Patient's level of ADLs: MINIMAL ASSIST Patient has working utilities: DME: [facility] Follow-up physician's appointment after d/c: WILL BE MADE BY HOSPITALIST NURSE DIRECTOR ON DISCHARGE Does patient want to access PORTAL?: NO Discharge plan PT LIVES AT HOME WITH HIS . STATES NORMALLY HE IS ABLE TO GET AROUND ALONE, BUT HAS BEEN WEAK LATELY. TALKED WITH HIM ABOUT A SKILLED STAY FOR REHAB BUT HE REFUSES. DISCUSSED HH AND HE IS AGREEABLE TO HH AND CHOOSES [facility] WHEN LIST PROVIDED. PLAN IS TO RETURN HOME WITH HOME HEALTH WHEN MEDICALLY STABLE. WILL CONTINUE TO FOLLOW.. CHAI DEL CID
--- NOTE | 2020-03-10 14:40 | NUR ---
Occupational Therapy evaluation completed on 5 with full eval to follow. Patient was pleasant and cooperative for evaluation. He tends to repeat with mild impaired memory skills, but is alert and oriented x3 incl . He has very long finger nails and when asked why he has long nails he responded so that he can scratch his 's back when she asks. Precautions include fall risk,bed alarm, impaired balance, ADLs and safety. Patient is moderate complexity 13826. Recomemnd OT per POC and SNf,but patient insists that he will return home with his and he is agreeable to home health SN, OT,PT. Thank you. Becki Fernandez OTR/l
--- NOTE | 2020-03-10 15:01 | NUR ---
PT RESTING IN BED. RESPS EASY AND NON LABORED. NO S/S OF DISTRESS NOTED. WILL CONTINUE TO MONITOR. BED ALARM ON. CALL LIGHT WITHIN REACH.
[2020-03-10 16:00] VITALS: BP 108/64
--- NOTE | 2020-03-10 18:29 | NUR ---
UROSTOMY BAG DRAINING W/O INCIDENT. PT STATES "IT WORKS PRETTY GOOD".WILL CONTINUE TO MONITOR. CALL LIGHT WITHIN REACH.
[2020-03-10 20:00] VITALS: BP 114/67
--- NOTE | 2020-03-10 21:31 | NUR ---
ASSUMED CARE OF PATIENT. PATIENT IS AAOX3 RESTING IN BED WITH EASY AND REGULAR RESPERS ON ROOM AIR. ASSESSMENT IS COMPLETE WITH NO S/S OF DISTRESS NOTED AT THIS TIME. PATIENT C/O BACK PAIN, TYLENOL OFFERED, PATIENT REFUSED. BED IS LOW, LOCKED, ALARMED, AND CALL LIGHT IS WITHIN REACH. BEDSIDE GLUCOSE 217, PATIENT REFUSED COVERAGE STATING "MY BROTHER FROM THAT STUFF AND I DON'T WANT IT." WILL CONTINUE TO MONITOR, SEE INTERVENTIONS.
--- NOTE | 2020-03-10 23:27 | NUR ---
CHART CHECK COMPLETE.
[2020-03-11] VITALS: BP 114/66
[2020-03-11 06:27] LABS: BASO % 0.4 % (0.0-1.0); EOS # 1.2 10*3/uL (0.0-0.4); HEMATOCRIT 28.8 % (42.0-52.0); LYMPH # 1.6 10*3/uL (1.3-4.4); LYMPH % 14.3 % (27.0-41.0); MEAN CORPUSCULAR HGB 28.4 pg (27.0-31.0); MEAN CORPUSCULAR HGB CONC 31.6 g/dl (33.0-37.0); MEAN PLATELET VOLUME 8.9 fl (9.6-12.3); MONO # 0.7 10*3/uL (0.1-1.0); MONO % 6.6 % (3.0-9.0); NEUT # 7.4 10*3/uL (2.3-7.9); NEUT % 67.2 % (47.0-73.0); PLATELET COUNT AUTOMATED 274 10*3/uL (130-400); RED CELL DISTRI WIDTH 15.2 % (0-14.5)
[2020-03-11 06:48] LABS: BUN 12 mg/dl (7-24); CHLORIDE 107 mmol/L (98-107); POTASSIUM 3.6 mmol/L (3.5-5.1); SODIUM 134 mmol/L (136-145)
[2020-03-11 08:00] VITALS: BP 109/63
--- NOTE | 2020-03-11 08:49 | NUR ---
PT SITTING UP IN BED, EATING BREAKFAST. NO DISTRESS NOTED. WILL MONITOR
--- NOTE | 2020-03-11 09:40 | NUR ---
PHYSICAL THERAPY Physical Therapy evaluation completed on 5th floor with full evaluation to follow. Recommend physical therapy per plan of care pt could benefit from SNF prior to home however states he will go home has to assist him w ronnie and RW agreeable to HH upon discharge. Thank you for this referral. Stephanie Nelson PT
--- NOTE | 2020-03-11 09:45 | NUR ---
OT NOTE Pt was seen this A.M. 1:1 for 18 minute OT session. Upon arrival pt was supine in bed. Pt identified by name and and had complaints of 10/10 low back pain. Pt transferred supine to sit EOB with SBA. While sitting EOB pt donned socks and gown with SBA. Sit to stand completed from bed level with CGA and use of straight cane for UE support. Functional mobility was then completed to the bathroom with CGA and use of straight cane. There he transferred on/off standard commode with CGA for safety and then stood sink side while washing his hands with CGA. Functional mobility completed back to the EOB. Challenged pt's dynamic standing balance while weight shifting, crossing midline, and reaching over all planes. Pt was able to maintain G- standing balance throughout. Pt transferred back into bed sit to supine with SBA. There he was left with call light in hand, tray table in place, and bed alarm activated for safety. Continue with POC as able. SHADIA Funes
--- NOTE | 2020-03-11 11:57 | NUR ---
PT WILL BE DISCHARGED TO HOME WITH WHEN MEDICALLY STABLE WITH [facility]. WILL CONTINUE TO FOLLOW.
[2020-03-11 12:00] VITALS: BP 116/73
--- NOTE | 2020-03-11 14:45 | NUR ---
PT REFUSED DC WOUND PHOTOS
--- NOTE | 2020-03-11 15:30 | NUR ---
SPOKE WITH PT DTR AND GAVE HER DC INSTRUCTIONS
--- NOTE | 2020-03-12 07:52 | NUR ---
OCCUPATIONAL THERAPY CO-SIGN I approve of the Occupational Therapy notes written above. DIANE HUNG OTR/Shazia
== END 2020-03-11 18:18 | disposition home or self-care (01) | DRG 871 ==
LOC: ED 11:00 → 5E 14:32 → EDHOLD 14:32 → 5E 14:43
PROVIDERS: Internal Medicine; Nurse Practitioner Family; Student in an Organized Health Care Education/Training Program; ADMIT Internal Medicine; ATTEND Internal Medicine
DX: A41.9 Sepsis, unspecified organism (principal); E43 Unspecified severe protein-calorie malnutrition; N30.01 Acute cystitis with hematuria; J98.11 Atelectasis; L03.818 Cellulitis of other sites; E87.1 Hypo-osmolality and hyponatremia; E11.65 Type 2 diabetes mellitus with hyperglycemia; K59.04 Chronic idiopathic constipation; R65.20 Severe sepsis without septic shock; N40.1 Benign prostatic hyperplasia with lower urinary tract symptoms; F32.9 Major depressive disorder, single episode, unspecified; E78.5 Hyperlipidemia, unspecified; D64.9 Anemia, unspecified; E83.42 Hypomagnesemia; R79.82 Elevated C-reactive protein (CRP); J92.9 Pleural plaque without asbestos; I10 Essential (primary) hypertension; Z68.22 Body mass index [BMI] 22.0-22.9, adult; Z88.0 Allergy status to penicillin; Z84.1 Family history of disorders of kidney and ureter; Z83.1 Family history of other infectious and parasitic diseases; Z86.14 Personal history of Methicillin resistant Staphylococcus aureus infection; Z79.899 Other long term (current) drug therapy

== ENCOUNTER → 2020-10-17 | Outpatient (CLI) | payer MEDICARE, OTHER ==
[~2020-10-17] MED LIST changes: +VITAMIN D3125 MCG PO
== END | disposition home or self-care (01) ==
LOC: RESCLI 00:31
PROVIDERS: ATTEND Internal Medicine
DX: F03.90 Unspecified dementia, unspecified severity, without behavioral disturbance, psychotic disturbance, mood disturbance, and anxiety (principal); E78.5 Hyperlipidemia, unspecified; E11.40 Type 2 diabetes mellitus with diabetic neuropathy, unspecified; E55.9 Vitamin D deficiency, unspecified; I10 Essential (primary) hypertension; K59.00 Constipation, unspecified; L98.499 Non-pressure chronic ulcer of skin of other sites with unspecified severity; N32.81 Overactive bladder; Z93.59 Other cystostomy status; Z79.899 Other long term (current) drug therapy; Z90.49 Acquired absence of other specified parts of digestive tract; Z88.0 Allergy status to penicillin

== ENCOUNTER → 2021-01-29 | Outpatient (CLI) | payer MEDICARE, OTHER | END | disposition home or self-care (01) | LOC: RESCLI 00:24 | PROVIDERS: ATTEND Internal Medicine | DX: I10 Essential (primary) hypertension (principal); F03.90 Unspecified dementia, unspecified severity, without behavioral disturbance, psychotic disturbance, mood disturbance, and anxiety; E78.5 Hyperlipidemia, unspecified; E11.40 Type 2 diabetes mellitus with diabetic neuropathy, unspecified; E55.9 Vitamin D deficiency, unspecified; Q05.7 Lumbar spina bifida without hydrocephalus; Z93.59 Other cystostomy status; Z79.82 Long term (current) use of aspirin; Z79.899 Other long term (current) drug therapy; Z88.0 Allergy status to penicillin; Z90.89 Acquired absence of other organs; Z98.890 Other specified postprocedural states ==

== ENCOUNTER → 2021-01-30 | Outpatient (CLI) | payer MEDICARE, OTHER ==
[2021-01-30 09:28] LABS: BASO # 0.1 10*3/uL (0.0-0.1); BASO % 0.7 % (0.0-1.0); EOS # 1.9 10*3/uL (0.0-0.4); EOS % 16.6 % (1.0-4.0); HEMATOCRIT 37.7 % (42.0-52.0); LYMPH # 2.4 10*3/uL (1.3-4.4); LYMPH % 21.2 % (27.0-41.0); MEAN CELL VOLUME 93.3 fl (80.0-94.0); MEAN CORPUSCULAR HGB 31.7 pg (27.0-31.0); MONO # 0.7 10*3/uL (0.1-1.0); MONO % 5.8 % (3.0-9.0); NEUT # 6.3 10*3/uL (2.3-7.9); NEUT % 55.5 % (47.0-73.0); PLATELET COUNT AUTOMATED 203 10*3/uL (130-400); RED BLOOD COUNT 4.04 10*6/uL (4.50-5.90); RED CELL DISTRI WIDTH 14.3 % (0-14.5); WHITE BLOOD COUNT 11.3 10*3/uL (4.8-10.8)
[2021-01-30 09:50] LABS: ALBUMIN 3.5 gm/dl (3.1-4.5); ALKALINE PHOSPHATASE 111 U/L (45-117); BUN 15 mg/dl (7-24); CHLORIDE 107 mmol/L (98-107); CHOLESTEROL 114 mg/dL (<200); CREATININE 0.89 mg/dL (0.70-1.30); LDL CHOLESTEROL 47 mg/dL (9-159); POTASSIUM 4.2 mmol/L (3.5-5.1); SGOT/AST 14 IU/L (3-35); SGPT/ALT 19 U/L (12-78); SODIUM 139 mmol/L (136-145); TOTAL PROTEIN 8.3 gm/dL (6.4-8.2); TRIGLYCERIDES 142 mg/dl (<150)
== END | disposition home or self-care (01) ==
LOC: LAB 09:05
PROVIDERS: Student in an Organized Health Care Education/Training Program; ATTEND Internal Medicine
DX: E78.5 Hyperlipidemia, unspecified (principal); E11.40 Type 2 diabetes mellitus with diabetic neuropathy, unspecified; E55.9 Vitamin D deficiency, unspecified

== ENCOUNTER → 2021-03-23 | Outpatient (CLI) | payer MEDICARE, OTHER | END | disposition home or self-care (01) | LOC: RESCLI 01:02 | PROVIDERS: ATTEND Internal Medicine Nephrology | DX: E78.5 Hyperlipidemia, unspecified (principal); F03.90 Unspecified dementia, unspecified severity, without behavioral disturbance, psychotic disturbance, mood disturbance, and anxiety; I10 Essential (primary) hypertension; E11.40 Type 2 diabetes mellitus with diabetic neuropathy, unspecified; E55.9 Vitamin D deficiency, unspecified; Z88.0 Allergy status to penicillin; Z98.890 Other specified postprocedural states; Z79.82 Long term (current) use of aspirin; Z79.899 Other long term (current) drug therapy ==

== ENCOUNTER → 2021-06-29 | Outpatient (CLI) | payer MEDICARE, OTHER | END | disposition home or self-care (01) | LOC: RESCLI 02:24 | PROVIDERS: ATTEND Internal Medicine Nephrology | DX: F03.90 Unspecified dementia, unspecified severity, without behavioral disturbance, psychotic disturbance, mood disturbance, and anxiety (principal); E78.5 Hyperlipidemia, unspecified; E11.40 Type 2 diabetes mellitus with diabetic neuropathy, unspecified; E55.9 Vitamin D deficiency, unspecified; I10 Essential (primary) hypertension; Z88.0 Allergy status to penicillin; Z79.82 Long term (current) use of aspirin; Z79.899 Other long term (current) drug therapy ==

== ENCOUNTER 2021-09-07 11:14 | Emergency (ER) | payer MEDICARE, OTHER ==
[~2021-09-07] VITALS: Ht 172.7 cm; Wt 68.0 kg
[2021-09-07 11:53] LABS: BASO # 0.1 10*3/uL (0.0-0.1); BASO % 0.5 % (0.0-1.0); EOS # 1.1 10*3/uL (0.0-0.4); EOS % 7.7 % (1.0-4.0); HEMATOCRIT 35.5 % (42.0-52.0); LYMPH # 1.2 10*3/uL (1.3-4.4); MEAN CELL VOLUME 86.2 fl (80.0-94.0); MEAN CORPUSCULAR HGB 27.2 pg (27.0-31.0); MEAN CORPUSCULAR HGB CONC 31.5 g/dl (33.0-37.0); MEAN PLATELET VOLUME 9.3 fl (9.6-12.3); MONO # 0.6 10*3/uL (0.1-1.0); MONO % 4.3 % (3.0-9.0); NEUT # 10.7 10*3/uL (2.3-7.9); NEUT % 77.5 % (47.0-73.0); PLATELET COUNT AUTOMATED 244 10*3/uL (130-400); RED BLOOD COUNT 4.12 10*6/uL (4.50-5.90); RED CELL DISTRI WIDTH 19.7 % (0-14.5); WHITE BLOOD COUNT 13.8 10*3/uL (4.8-10.8)
[2021-09-07 12:11] LABS: ALKALINE PHOSPHATASE 110 U/L (45-117); BUN 21 mg/dl (7-24); CHLORIDE 102 mmol/L (98-107); CREATININE 1.27 mg/dL (0.70-1.30); POTASSIUM 4.3 mmol/L (3.5-5.1); SGOT/AST 15 IU/L (3-35); SGPT/ALT 15 U/L (12-78); SODIUM 134 mmol/L (136-145); TOTAL PROTEIN 8.8 gm/dL (6.4-8.2)
[2021-09-07 12:44] LABS: BILIRUBIN Negative (Negative); BLOOD 3+ (Negative); CLARITY Turbid (Clear); COLOR Yellow (Yellow); GLUCOSE Negative (Negative); KETONE Trace (Negative); LEUKO ESTERASE 3+ (Negative); NITRITE Negative (Negative)
[2021-09-07 13:13] LABS: WBC TNTC wbc/hpf (0-5)
[2021-09-07 13:14] LABS: BACTERIA 3+
[2021-09-07 13:16] LABS: RBC 16-20 rbc/hpf (0-2)
== END 2021-09-07 15:10 | disposition short-term general hospital (02) ==
LOC: ED 11:14
PROVIDERS: Physician Assistant
DX: S06.5X0A Traumatic subdural hemorrhage without loss of consciousness, initial encounter (principal); Z88.0 Allergy status to penicillin; Z79.899 Other long term (current) drug therapy; Z90.89 Acquired absence of other organs; Z98.890 Other specified postprocedural states; W18.39XA Other fall on same level, initial encounter; Y93.89 Activity, other specified; Y92.89 Other specified places as the place of occurrence of the external cause; Y99.8 Other external cause status

== ENCOUNTER 2021-09-11 17:08 | Inpatient (IN) | payer MEDICARE, OTHER ==
[~2021-09-11] VITALS: Ht 172.7 cm; Wt 69.9 kg
[2021-09-11 17:29] VITALS: BP 112/74
[2021-09-11 18:14] LABS: BASO % 0.5 % (0.0-1.0); EOS # 1.5 10*3/uL (0.0-0.4); EOS % 17.9 % (1.0-4.0); HEMATOCRIT 35.3 % (42.0-52.0); LYMPH # 1.5 10*3/uL (1.3-4.4); LYMPH % 18.4 % (27.0-41.0); MEAN CELL VOLUME 86.5 fl (80.0-94.0); MEAN CORPUSCULAR HGB CONC 31.2 g/dl (33.0-37.0); MEAN PLATELET VOLUME 9.6 fl (9.6-12.3); MONO # 0.6 10*3/uL (0.1-1.0); MONO % 7.7 % (3.0-9.0); NEUT # 4.6 10*3/uL (2.3-7.9); NEUT % 55.1 % (47.0-73.0); PLATELET COUNT AUTOMATED 231 10*3/uL (130-400); RED BLOOD COUNT 4.08 10*6/uL (4.50-5.90); RED CELL DISTRI WIDTH 19.5 % (0-14.5); WHITE BLOOD COUNT 8.3 10*3/uL (4.8-10.8)
[2021-09-11 18:17] LABS: BILIRUBIN Negative (Negative); BLOOD 3+ (Negative); CLARITY Turbid (Clear); COLOR Yellow (Yellow); GLUCOSE Negative (Negative); KETONE Negative (Negative); LEUKO ESTERASE 3+ (Negative); NITRITE Negative (Negative); SPECIFIC GRAVITY 1.015 (1.001-1.030)
[2021-09-11 18:26] LABS: BACTERIA 3+; EPITHELIAL CELLS 0-2; WBC 41-50 wbc/hpf (0-5)
[2021-09-11 18:30] LABS: ALKALINE PHOSPHATASE 115 U/L (45-117); BUN 22 mg/dl (7-24); CHLORIDE 101 mmol/L (98-107); CREATININE 1.18 mg/dL (0.70-1.30); SGOT/AST 10 IU/L (3-35); SGPT/ALT 12 U/L (12-78); SODIUM 134 mmol/L (136-145); TOTAL PROTEIN 8.6 gm/dL (6.4-8.2)
[2021-09-11 20:00] VITALS: BP 132/74
[2021-09-11] MEDS ORDERED: COLACE100 MG PO (20:15)
[2021-09-11] MEDS ORDERED: KEPPRA500 MG PO (20:15)
[2021-09-11 23:05] VITALS: BP 132/74
[2021-09-12] VITALS: BP 132/74
[2021-09-12 06:10] LABS: ALKALINE PHOSPHATASE 102 U/L (45-117); BUN 18 mg/dl (7-24); CHLORIDE 103 mmol/L (98-107); CREATININE 1.02 mg/dL (0.70-1.30); POTASSIUM 4.1 mmol/L (3.5-5.1); SGOT/AST 7 IU/L (3-35); SGPT/ALT 12 U/L (12-78); SODIUM 135 mmol/L (136-145); TOTAL PROTEIN 7.6 gm/dL (6.4-8.2)
[2021-09-12 06:13] LABS: HEMATOCRIT 32.5 % (42.0-52.0); MEAN CELL VOLUME 86.4 fl (80.0-94.0); MEAN CORPUSCULAR HGB 27.1 pg (27.0-31.0); MEAN CORPUSCULAR HGB CONC 31.4 g/dl (33.0-37.0); MEAN PLATELET VOLUME 9.8 fl (9.6-12.3); PLATELET COUNT AUTOMATED 225 10*3/uL (130-400); RED BLOOD COUNT 3.76 10*6/uL (4.50-5.90); RED CELL DISTRI WIDTH 19.4 % (0-14.5)
[2021-09-12 06:48] LABS: MANUAL DIFF REFLEX YES
[2021-09-12 07:29] LABS: ATYPICAL LYMPHS 1 % (0-0); BASOPHILS 1 % (0-1); BURR CELLS FEW; OVALOCYTES FEW; PLATELET SUFFICIENCY NORMAL (NORMAL); POLYCHROMASIA SLIGHT; SCHISTOCYTES FEW; TOTAL CELLS COUNTED 100 #CELLS
[2021-09-12 08:00] VITALS: BP 113/50
[2021-09-12 12:00] VITALS: BP 127/87
[2021-09-12 16:00] VITALS: BP 121/80
[2021-09-12 20:00] VITALS: BP 127/71
[2021-09-12 23:47] VITALS: BP 118/67
[2021-09-13 06:08] LABS: BASO % 0.5 % (0.0-1.0); EOS # 1.5 10*3/uL (0.0-0.4); EOS % 18.7 % (1.0-4.0); LYMPH # 1.4 10*3/uL (1.3-4.4); LYMPH % 17.6 % (27.0-41.0); MEAN CELL VOLUME 84.8 fl (80.0-94.0); MEAN CORPUSCULAR HGB 27.2 pg (27.0-31.0); MEAN CORPUSCULAR HGB CONC 32.1 g/dl (33.0-37.0); MEAN PLATELET VOLUME 9.2 fl (9.6-12.3); MONO # 0.6 10*3/uL (0.1-1.0); MONO % 7.2 % (3.0-9.0); NEUT # 4.4 10*3/uL (2.3-7.9); NEUT % 55.7 % (47.0-73.0); PLATELET COUNT AUTOMATED 223 10*3/uL (130-400); RED BLOOD COUNT 3.89 10*6/uL (4.50-5.90); RED CELL DISTRI WIDTH 19.3 % (0-14.5); WHITE BLOOD COUNT 7.9 10*3/uL (4.8-10.8)
[2021-09-13 06:20] LABS: BUN 18 mg/dl (7-24); CHLORIDE 101 mmol/L (98-107); CREATININE 1.17 mg/dL (0.70-1.30); SODIUM 134 mmol/L (136-145)
[2021-09-13 12:00] VITALS: BP 108/62
[2021-09-13 16:00] VITALS: BP 123/70
[2021-09-13 20:00] VITALS: BP 110/58
[2021-09-14] VITALS: BP 11/61; BP 114/61
[2021-09-14 08:00] VITALS: BP 102/55
[2021-09-14] MEDS ORDERED: AMOXICILLIN500 M3 PO (11:07)
[2021-09-14] MEDS ORDERED: LEVOFLOXACIN750 M2 PO (11:07)
== END 2021-09-14 13:05 | disposition home health service (06) | DRG 690 ==
LOC: ED 17:08 → EDHOLD 18:43 → 4E 18:43
PROVIDERS: Student in an Organized Health Care Education/Training Program; ADMIT Emergency Medicine; ATTEND Emergency Medicine
DX: N39.0 Urinary tract infection, site not specified (principal); E87.1 Hypo-osmolality and hyponatremia; Z16.12 Extended spectrum beta lactamase (ESBL) resistance; A49.9 Bacterial infection, unspecified; Z20.822 Contact with and (suspected) exposure to COVID-19; R31.9 Hematuria, unspecified; N40.0 Benign prostatic hyperplasia without lower urinary tract symptoms; R59.1 Generalized enlarged lymph nodes; E78.5 Hyperlipidemia, unspecified; F03.90 Unspecified dementia, unspecified severity, without behavioral disturbance, psychotic disturbance, mood disturbance, and anxiety; E11.65 Type 2 diabetes mellitus with hyperglycemia; Z88.0 Allergy status to penicillin; Z79.82 Long term (current) use of aspirin; Z79.899 Other long term (current) drug therapy; Z90.49 Acquired absence of other specified parts of digestive tract

== ENCOUNTER → 2021-09-21 | Outpatient (CLI) | payer MEDICARE, OTHER ==
[~2021-09-21] MED LIST changes: +AMOXICILLIN500 M3 PO; +COLACE100 MG PO; +KEPPRA500 MG PO; +LEVOFLOXACIN750 M2 PO
== END | disposition home or self-care (01) ==
LOC: RESCLI 00:56
PROVIDERS: ATTEND Internal Medicine Nephrology
DX: E53.8 Deficiency of other specified B group vitamins (principal); F03.90 Unspecified dementia, unspecified severity, without behavioral disturbance, psychotic disturbance, mood disturbance, and anxiety; E78.5 Hyperlipidemia, unspecified; E11.40 Type 2 diabetes mellitus with diabetic neuropathy, unspecified; E55.9 Vitamin D deficiency, unspecified; I62.00 Nontraumatic subdural hemorrhage, unspecified; N39.0 Urinary tract infection, site not specified; B96.29 Other Escherichia coli [E. coli] as the cause of diseases classified elsewhere; Z16.12 Extended spectrum beta lactamase (ESBL) resistance; Z88.0 Allergy status to penicillin; Z98.890 Other specified postprocedural states; Z79.82 Long term (current) use of aspirin; Z79.899 Other long term (current) drug therapy

== ENCOUNTER → 2022-02-25 | Outpatient (CLI) | payer MEDICARE, OTHER | END | disposition home or self-care (01) | LOC: RESCLI 02-24 18:26 | PROVIDERS: ATTEND Internal Medicine | DX: E11.40 Type 2 diabetes mellitus with diabetic neuropathy, unspecified (principal); E55.9 Vitamin D deficiency, unspecified; E78.5 Hyperlipidemia, unspecified; C80.1 Malignant (primary) neoplasm, unspecified; F03.90 Unspecified dementia, unspecified severity, without behavioral disturbance, psychotic disturbance, mood disturbance, and anxiety; Z79.899 Other long term (current) drug therapy; Z88.0 Allergy status to penicillin; Z98.890 Other specified postprocedural states; Z79.82 Long term (current) use of aspirin ==

== ENCOUNTER → 2022-08-12 | Outpatient (CLI) | payer MEDICARE, OTHER | END | disposition home or self-care (01) | LOC: RESCLI 01:03 | PROVIDERS: ATTEND Internal Medicine | DX: E11.40 Type 2 diabetes mellitus with diabetic neuropathy, unspecified (principal); F03.90 Unspecified dementia, unspecified severity, without behavioral disturbance, psychotic disturbance, mood disturbance, and anxiety; E55.9 Vitamin D deficiency, unspecified; E78.5 Hyperlipidemia, unspecified; L29.9 Pruritus, unspecified; Z88.0 Allergy status to penicillin; Z98.890 Other specified postprocedural states; Z79.2 Long term (current) use of antibiotics; Z79.899 Other long term (current) drug therapy ==

== ENCOUNTER 2022-12-31 16:26 | Inpatient (IN) | payer MEDICARE, OTHER ==
[~2022-12-31] VITALS: Ht 172.7 cm; Wt 63.5 kg
[2022-12-31 16:32] VITALS: BP 127/76
[2022-12-31 17:15] LABS: BASO # 0.1 10*3/uL (0.0-0.1); BASO % 0.6 % (0.0-1.0); EOS # 1.1 10*3/uL (0.0-0.4); EOS % 13.4 % (1.0-4.0); HEMATOCRIT 37.9 % (42.0-52.0); LYMPH # 1.7 10*3/uL (1.3-4.4); LYMPH % 20.7 % (27.0-41.0); MEAN CELL VOLUME 94.8 fl (80.0-94.0); MEAN CORPUSCULAR HGB 31.8 pg (27.0-31.0); MEAN CORPUSCULAR HGB CONC 33.5 g/dl (33.0-37.0); MEAN PLATELET VOLUME 9.1 fl (9.6-12.3); MONO # 0.6 10*3/uL (0.1-1.0); MONO % 7.2 % (3.0-9.0); NEUT # 4.7 10*3/uL (2.3-7.9); NEUT % 57.7 % (47.0-73.0); PLATELET COUNT AUTOMATED 209 10*3/uL (130-400); WHITE BLOOD COUNT 8.2 10*3/uL (4.8-10.8)
[2022-12-31 17:24] LABS: ACT PARTIAL THROMBO TIME 26.7 SECONDS (20.0-32.1); INTERNATIONAL NORM RATIO 1.1 (2.0-3.5)
[2022-12-31 17:44] LABS: ALKALINE PHOSPHATASE 116 U/L (46-116); BUN 23 mg/dl (9-23); CHLORIDE 102 mmol/L (98-107); LIPASE 43 U/L (12-53); SGPT/ALT 23 U/L (10-49); TOTAL PROTEIN 8.2 gm/dL (6.0-8.0)
[2022-12-31 17:46] LABS: BILIRUBIN Negative (Negative); BLOOD 2+ (Negative); CLARITY Turbid (Clear); COLOR Yellow (Yellow); GLUCOSE Negative (Negative); KETONE Negative (Negative); LEUKO ESTERASE 3+ (Negative); NITRITE Positive (Negative); SPECIFIC GRAVITY 1.015 (1.001-1.030)
[2022-12-31 18:11] LABS: BACTERIA 4+; EPITHELIAL CELLS 0-2; RBC 0-2 rbc/hpf (0-2); WBC TNTC wbc/hpf (0-5)
[2022-12-31 21:00] VITALS: BP 126/75
[2023-01-01] VITALS: BP 116/65
[2023-01-01 08:00] VITALS: BP 114/60
[2023-01-01 12:00] VITALS: BP 139/71
[2023-01-01 12:12] LABS: VITAMIN D, 25-HYDROXY 55.4 ng/mL (30-100)
[2023-01-01 13:17] LABS: BASO % 0.5 % (0.0-1.0); EOS # 1.2 10*3/uL (0.0-0.4); EOS % 14.7 % (1.0-4.0); HEMATOCRIT 35.8 % (42.0-52.0); LYMPH # 1.4 10*3/uL (1.3-4.4); MEAN CELL VOLUME 95.2 fl (80.0-94.0); MEAN CORPUSCULAR HGB 32.2 pg (27.0-31.0); MEAN CORPUSCULAR HGB CONC 33.8 g/dl (33.0-37.0); MEAN PLATELET VOLUME 9.4 fl (9.6-12.3); MONO # 0.5 10*3/uL (0.1-1.0); MONO % 5.7 % (3.0-9.0); NEUT # 4.8 10*3/uL (2.3-7.9); NEUT % 60.7 % (47.0-73.0); PLATELET COUNT AUTOMATED 172 10*3/uL (130-400); RED BLOOD COUNT 3.76 10*6/uL (4.50-5.90); RED CELL DISTRI WIDTH 13.9 % (0-14.5); WHITE BLOOD COUNT 7.8 10*3/uL (4.8-10.8)
[2023-01-01 13:22] LABS: BUN 21 mg/dl (9-23); CHLORIDE 106 mmol/L (98-107); CHOLESTEROL 107 mg/dL (<200); FREE T4 1.05 ng/dl (0.89-1.76); LDL CHOLESTEROL 60 mg/dL (9-159); POTASSIUM 4.1 mmol/L (3.4-5.1); TRIGLYCERIDES 88 mg/dl (<150)
[2023-01-01 15:02] LABS: INTERNATIONAL NORM RATIO 1.1 (2.0-3.5)
[2023-01-01 16:00] VITALS: BP 128/63
[2023-01-01 20:00] VITALS: BP 134/73
[2023-01-02] VITALS: BP 119/71
[2023-01-02 06:04] LABS: BASO % 0.4 % (0.0-1.0); EOS # 1.2 10*3/uL (0.0-0.4); EOS % 15.7 % (1.0-4.0); HEMATOCRIT 33.9 % (42.0-52.0); LYMPH # 1.6 10*3/uL (1.3-4.4); LYMPH % 21.4 % (27.0-41.0); MEAN CELL VOLUME 95.2 fl (80.0-94.0); MEAN CORPUSCULAR HGB 31.5 pg (27.0-31.0); MEAN PLATELET VOLUME 9.6 fl (9.6-12.3); MONO # 0.4 10*3/uL (0.1-1.0); MONO % 5.6 % (3.0-9.0); NEUT # 4.2 10*3/uL (2.3-7.9); NEUT % 56.4 % (47.0-73.0); PLATELET COUNT AUTOMATED 187 10*3/uL (130-400); RED BLOOD COUNT 3.56 10*6/uL (4.50-5.90); RED CELL DISTRI WIDTH 13.8 % (0-14.5); WHITE BLOOD COUNT 7.5 10*3/uL (4.8-10.8)
[2023-01-02 06:30] LABS: BUN 17 mg/dl (9-23); CHLORIDE 101 mmol/L (98-107); POTASSIUM 3.6 mmol/L (3.4-5.1)
[2023-01-02 08:00] VITALS: BP 117/81
[2023-01-02 12:00] VITALS: BP 128/74
[2023-01-02 16:00] VITALS: BP 117/70
[2023-01-02 20:00] VITALS: BP 138/67
[2023-01-03] VITALS: BP 134/74
[2023-01-03 06:28] LABS: BUN 14 mg/dl (9-23); CHLORIDE 103 mmol/L (98-107)
[2023-01-03 06:43] LABS: BASO % 0.4 % (0.0-1.0); EOS # 1.2 10*3/uL (0.0-0.4); HEMATOCRIT 32.9 % (42.0-52.0); LYMPH # 1.8 10*3/uL (1.3-4.4); LYMPH % 25.9 % (27.0-41.0); MEAN CELL VOLUME 94.3 fl (80.0-94.0); MEAN CORPUSCULAR HGB 31.8 pg (27.0-31.0); MEAN CORPUSCULAR HGB CONC 33.7 g/dl (33.0-37.0); MEAN PLATELET VOLUME 9.8 fl (9.6-12.3); MONO # 0.5 10*3/uL (0.1-1.0); MONO % 6.8 % (3.0-9.0); NEUT # 3.3 10*3/uL (2.3-7.9); NEUT % 48.5 % (47.0-73.0); PLATELET COUNT AUTOMATED 183 10*3/uL (130-400); RED BLOOD COUNT 3.49 10*6/uL (4.50-5.90); RED CELL DISTRI WIDTH 13.9 % (0-14.5); WHITE BLOOD COUNT 6.8 10*3/uL (4.8-10.8)
[2023-01-03 08:00] VITALS: BP 112/68
[2023-01-03 12:00] VITALS: BP 112/68
[2023-01-03 16:00] VITALS: BP 96/54
[2023-01-03 20:00] VITALS: BP 127/71
[2023-01-04] VITALS: BP 101/53
[2023-01-04 06:26] LABS: BASO % 0.5 % (0.0-1.0); EOS # 1.2 10*3/uL (0.0-0.4); EOS % 19.4 % (1.0-4.0); HEMATOCRIT 32.1 % (42.0-52.0); LYMPH # 1.7 10*3/uL (1.3-4.4); LYMPH % 28.3 % (27.0-41.0); MEAN CELL VOLUME 94.1 fl (80.0-94.0); MEAN PLATELET VOLUME 9.6 fl (9.6-12.3); MONO # 0.4 10*3/uL (0.1-1.0); MONO % 6.1 % (3.0-9.0); NEUT # 2.8 10*3/uL (2.3-7.9); NEUT % 45.4 % (47.0-73.0); PLATELET COUNT AUTOMATED 177 10*3/uL (130-400); RED BLOOD COUNT 3.41 10*6/uL (4.50-5.90); RED CELL DISTRI WIDTH 13.9 % (0-14.5); WHITE BLOOD COUNT 6.1 10*3/uL (4.8-10.8)
[2023-01-04 07:03] LABS: BUN 10 mg/dl (9-23); CHLORIDE 104 mmol/L (98-107); POTASSIUM 3.7 mmol/L (3.4-5.1)
[2023-01-04 08:00] VITALS: BP 100/62
[2023-01-04] MEDS ORDERED: DOXYCYCLINE HY100 M3 PO ×2 (11:40)
[2023-01-04 12:00] VITALS: BP 121/73
[2023-02-10] MEDS ORDERED: VITAMIN B1250 MCG PO (20:11)
[2023-02-13] MEDS ORDERED: MEROPENEM-500 MG/50 IV (18:45)
[2023-02-14] MEDS ORDERED: MEROPENEM-500 MG/50 IV (11:13)
== END 2023-01-04 13:59 | disposition home health service (06) | DRG 592 ==
LOC: ED 16:26 → 4E 18:49 → EDHOLD 18:49 → 4E 20:25
PROVIDERS: Emergency Medicine; Student in an Organized Health Care Education/Training Program; ADMIT Student in an Organized Health Care Education/Training Program; ATTEND Student in an Organized Health Care Education/Training Program
PROC: 0HB6XZZ Excision of Back Skin, External Approach (ICD-10-PCS; principal; 2023-01-03)
PROC: 0HB8XZZ Excision of Buttock Skin, External Approach (ICD-10-PCS; 2023-01-03)
PROC: 0HB8XZZ Excision of Buttock Skin, External Approach (ICD-10-PCS; 2023-01-03)
DX: L89.150 Pressure ulcer of sacral region, unstageable (principal); N17.0 Acute kidney failure with tubular necrosis; E44.0 Moderate protein-calorie malnutrition; E87.20 Acidosis, unspecified; N30.01 Acute cystitis with hematuria; F03.90 Unspecified dementia, unspecified severity, without behavioral disturbance, psychotic disturbance, mood disturbance, and anxiety; E11.9 Type 2 diabetes mellitus without complications; I10 Essential (primary) hypertension; E78.5 Hyperlipidemia, unspecified; N40.1 Benign prostatic hyperplasia with lower urinary tract symptoms; L08.9 Local infection of the skin and subcutaneous tissue, unspecified; D53.9 Nutritional anemia, unspecified; D72.10 Eosinophilia, unspecified; L89.320 Pressure ulcer of left buttock, unstageable; L89.310 Pressure ulcer of right buttock, unstageable; B96.20 Unspecified Escherichia coli [E. coli] as the cause of diseases classified elsewhere; Z66 Do not resuscitate; Z88.0 Allergy status to penicillin; Z84.1 Family history of disorders of kidney and ureter; Z90.5 Acquired absence of kidney; Z84.2 Family history of other diseases of the genitourinary system; Z68.21 Body mass index [BMI] 21.0-21.9, adult

== ENCOUNTER → 2023-01-10 | Outpatient (CLI) | payer MEDICARE, OTHER ==
[~2023-01-10] MED LIST changes: +DOXYCYCLINE HY100 M3 PO
== END | disposition home or self-care (01) ==
LOC: WOUNDCARE 02:05
PROVIDERS: ATTEND Nurse Practitioner Primary Care
DX: L89.323 Pressure ulcer of left buttock, stage 3 (principal); L89.313 Pressure ulcer of right buttock, stage 3; I12.9 Hypertensive chronic kidney disease with stage 1 through stage 4 chronic kidney disease, or unspecified chronic kidney disease; N18.9 Chronic kidney disease, unspecified; L23.9 Allergic contact dermatitis, unspecified cause; B95.7 Other staphylococcus as the cause of diseases classified elsewhere; E78.5 Hyperlipidemia, unspecified; N40.0 Benign prostatic hyperplasia without lower urinary tract symptoms; F03.90 Unspecified dementia, unspecified severity, without behavioral disturbance, psychotic disturbance, mood disturbance, and anxiety; Z85.51 Personal history of malignant neoplasm of bladder; Z85.528 Personal history of other malignant neoplasm of kidney; Z85.118 Personal history of other malignant neoplasm of bronchus and lung

== ENCOUNTER → 2023-01-17 | Outpatient (CLI) | payer MEDICARE, OTHER | END | disposition home or self-care (01) | LOC: WOUNDCARE 02:21 | PROVIDERS: ATTEND Nurse Practitioner Family | DX: L89.323 Pressure ulcer of left buttock, stage 3 (principal); L89.313 Pressure ulcer of right buttock, stage 3; B95.7 Other staphylococcus as the cause of diseases classified elsewhere; L23.9 Allergic contact dermatitis, unspecified cause; E11.22 Type 2 diabetes mellitus with diabetic chronic kidney disease; I12.9 Hypertensive chronic kidney disease with stage 1 through stage 4 chronic kidney disease, or unspecified chronic kidney disease; N18.9 Chronic kidney disease, unspecified; E78.5 Hyperlipidemia, unspecified; N40.0 Benign prostatic hyperplasia without lower urinary tract symptoms; F03.90 Unspecified dementia, unspecified severity, without behavioral disturbance, psychotic disturbance, mood disturbance, and anxiety; Z85.51 Personal history of malignant neoplasm of bladder ==

== ENCOUNTER → 2023-01-19 | Outpatient (CLI) | payer MEDICARE, OTHER | END | disposition home or self-care (01) | LOC: RESCLI 01:27 | PROVIDERS: ATTEND Internal Medicine | DX: L89.310 Pressure ulcer of right buttock, unstageable (principal); E55.9 Vitamin D deficiency, unspecified; F03.90 Unspecified dementia, unspecified severity, without behavioral disturbance, psychotic disturbance, mood disturbance, and anxiety; E11.40 Type 2 diabetes mellitus with diabetic neuropathy, unspecified; E78.5 Hyperlipidemia, unspecified; Z98.890 Other specified postprocedural states; Z79.899 Other long term (current) drug therapy ==

== ENCOUNTER → 2023-02-01 | Outpatient (CLI) | payer MEDICARE, OTHER | END | disposition home or self-care (01) | LOC: WOUNDCARE 01:04 | PROVIDERS: ATTEND Nurse Practitioner Family | DX: L89.313 Pressure ulcer of right buttock, stage 3 (principal); L89.323 Pressure ulcer of left buttock, stage 3; L23.9 Allergic contact dermatitis, unspecified cause; I12.9 Hypertensive chronic kidney disease with stage 1 through stage 4 chronic kidney disease, or unspecified chronic kidney disease; N18.9 Chronic kidney disease, unspecified; B95.7 Other staphylococcus as the cause of diseases classified elsewhere; E78.5 Hyperlipidemia, unspecified; N40.0 Benign prostatic hyperplasia without lower urinary tract symptoms; F03.90 Unspecified dementia, unspecified severity, without behavioral disturbance, psychotic disturbance, mood disturbance, and anxiety; Z85.51 Personal history of malignant neoplasm of bladder; Z85.118 Personal history of other malignant neoplasm of bronchus and lung; Z85.528 Personal history of other malignant neoplasm of kidney ==

== ENCOUNTER → 2023-03-09 | Outpatient (CLI) | payer MEDICARE, OTHER ==
[~2023-03-09] MED LIST changes: +MEROPENEM-500 MG/50 IV; +VITAMIN B1250 MCG PO
== END | disposition home or self-care (01) ==
LOC: WOUNDCARE 02-15 00:55 → RESCLI 02:21
PROVIDERS: ATTEND Internal Medicine
DX: I10 Essential (primary) hypertension (principal); L89.310 Pressure ulcer of right buttock, unstageable; E55.9 Vitamin D deficiency, unspecified; F03.90 Unspecified dementia, unspecified severity, without behavioral disturbance, psychotic disturbance, mood disturbance, and anxiety; E11.40 Type 2 diabetes mellitus with diabetic neuropathy, unspecified; E78.5 Hyperlipidemia, unspecified; Z98.890 Other specified postprocedural states; Z79.899 Other long term (current) drug therapy

== ENCOUNTER → 2023-03-30 | Outpatient (CLI) | payer MEDICARE, OTHER | END | disposition home or self-care (01) | LOC: WOUNDCARE 11:02 | PROVIDERS: ATTEND Nurse Practitioner Family | DX: L89.213 Pressure ulcer of right hip, stage 3 (principal); L24.A2 Irritant contact dermatitis due to fecal, urinary or dual incontinence; L98.9 Disorder of the skin and subcutaneous tissue, unspecified; N40.0 Benign prostatic hyperplasia without lower urinary tract symptoms; E78.5 Hyperlipidemia, unspecified; I12.9 Hypertensive chronic kidney disease with stage 1 through stage 4 chronic kidney disease, or unspecified chronic kidney disease; N18.9 Chronic kidney disease, unspecified; F03.90 Unspecified dementia, unspecified severity, without behavioral disturbance, psychotic disturbance, mood disturbance, and anxiety; Z85.118 Personal history of other malignant neoplasm of bronchus and lung; Z85.51 Personal history of malignant neoplasm of bladder; Z85.528 Personal history of other malignant neoplasm of kidney ==

== ENCOUNTER → 2023-04-04 | Outpatient (CLI) | payer MEDICARE, OTHER | END | disposition home or self-care (01) | LOC: WOUNDCARE 00:54 | PROVIDERS: ATTEND Nurse Practitioner Primary Care | DX: L89.213 Pressure ulcer of right hip, stage 3 (principal); L24.A2 Irritant contact dermatitis due to fecal, urinary or dual incontinence; L98.9 Disorder of the skin and subcutaneous tissue, unspecified; I10 Essential (primary) hypertension; E78.5 Hyperlipidemia, unspecified; N40.0 Benign prostatic hyperplasia without lower urinary tract symptoms; F03.90 Unspecified dementia, unspecified severity, without behavioral disturbance, psychotic disturbance, mood disturbance, and anxiety; Z85.118 Personal history of other malignant neoplasm of bronchus and lung; Z85.51 Personal history of malignant neoplasm of bladder; Z85.528 Personal history of other malignant neoplasm of kidney ==

== ENCOUNTER 2023-05-04 08:05 | Emergency (ER) | payer MEDICARE, OTHER ==
[~2023-05-04] VITALS: Ht 172.7 cm; Wt 64.0 kg
[2023-05-04 08:17] VITALS: BP 99/54
[2023-05-04 08:51] LABS: BILIRUBIN Negative (Negative); BLOOD 2+ (Negative); CLARITY Turbid (Clear); COLOR Yellow (Yellow); GLUCOSE Negative (Negative); KETONE Negative (Negative); LEUKO ESTERASE 3+ (Negative); NITRITE Negative (Negative); PH 8.5 (4.5-8.0); SPECIFIC GRAVITY 1.015 (1.001-1.030); UROBILINOGEN 0.2 E.U./dl (0.0-1.0)
[2023-05-04 09:08] LABS: BASO % 0.6 % (0.0-1.0); EOS # 0.8 10*3/uL (0.0-0.4); EOS % 13.2 % (1.0-4.0); HEMATOCRIT 38.1 % (42.0-52.0); LYMPH # 1.1 10*3/uL (1.3-4.4); LYMPH % 17.2 % (27.0-41.0); MEAN CELL VOLUME 96.5 fl (80.0-94.0); MEAN CORPUSCULAR HGB 31.9 pg (27.0-31.0); MEAN CORPUSCULAR HGB CONC 33.1 g/dl (33.0-37.0); MONO # 0.4 10*3/uL (0.1-1.0); MONO % 6.9 % (3.0-9.0); NEUT # 3.9 10*3/uL (2.3-7.9); NEUT % 61.9 % (47.0-73.0); PLATELET COUNT AUTOMATED 157 10*3/uL (130-400); RED BLOOD COUNT 3.95 10*6/uL (4.50-5.90); RED CELL DISTRI WIDTH 14.7 % (0-14.5); WHITE BLOOD COUNT 6.3 10*3/uL (4.8-10.8)
[2023-05-04 09:12] LABS: BACTERIA 3+; WBC TNTC wbc/hpf (0-5)
[2023-05-04 09:30] LABS: ALKALINE PHOSPHATASE 127 U/L (46-116); BUN 27 mg/dl (9-23); CHLORIDE 104 mmol/L (98-107); LIPASE 39 U/L (12-53); SGPT/ALT 32 U/L (5-49); TOTAL PROTEIN 8.6 gm/dL (6.0-8.0)
[2023-05-04 18:47] VITALS: BP 126/71
== END 2023-05-04 21:17 | disposition short-term general hospital (02) ==
LOC: ED 08:05 → EDHOLD 11:42 → ED 21:17
PROVIDERS: Emergency Medicine; Internal Medicine
DX: I63.9 Cerebral infarction, unspecified (principal); E86.0 Dehydration; N39.0 Urinary tract infection, site not specified; Z88.0 Allergy status to penicillin; Z79.899 Other long term (current) drug therapy; Z98.890 Other specified postprocedural states

== ENCOUNTER 2023-05-26 15:00 | Emergency (ER) | payer MEDICARE, OTHER ==
[~2023-05-26] VITALS: Ht 172.7 cm; Wt 65.3 kg
== END 2023-05-26 15:27 | disposition left against medical advice (07) ==
LOC: ED 15:00
DX: T83.091A Other mechanical complication of indwelling urethral catheter, initial encounter (principal); Z88.0 Allergy status to penicillin; Z53.21 Procedure and treatment not carried out due to patient leaving prior to being seen by health care provider

== ENCOUNTER → 2023-05-26 | Outpatient (CLI) | payer MEDICARE, OTHER | END | disposition home or self-care (01) | LOC: WOUNDCARE 01:58 | PROVIDERS: ATTEND Nurse Practitioner Family | DX: L89.213 Pressure ulcer of right hip, stage 3 (principal); L24.A2 Irritant contact dermatitis due to fecal, urinary or dual incontinence; L98.9 Disorder of the skin and subcutaneous tissue, unspecified; I10 Essential (primary) hypertension; E78.5 Hyperlipidemia, unspecified; N40.0 Benign prostatic hyperplasia without lower urinary tract symptoms; F03.90 Unspecified dementia, unspecified severity, without behavioral disturbance, psychotic disturbance, mood disturbance, and anxiety; Z85.51 Personal history of malignant neoplasm of bladder; Z86.73 Personal history of transient ischemic attack (TIA), and cerebral infarction without residual deficits ==

== ENCOUNTER → 2023-06-09 | Outpatient (CLI) | payer MEDICARE, OTHER | END | disposition home or self-care (01) | LOC: WOUNDCARE 00:54 | PROVIDERS: ATTEND Nurse Practitioner Family | DX: L89.213 Pressure ulcer of right hip, stage 3 (principal); L98.9 Disorder of the skin and subcutaneous tissue, unspecified; L24.A2 Irritant contact dermatitis due to fecal, urinary or dual incontinence; E78.5 Hyperlipidemia, unspecified; I10 Essential (primary) hypertension; N40.0 Benign prostatic hyperplasia without lower urinary tract symptoms; F03.90 Unspecified dementia, unspecified severity, without behavioral disturbance, psychotic disturbance, mood disturbance, and anxiety; Z95.818 Presence of other cardiac implants and grafts; Z86.73 Personal history of transient ischemic attack (TIA), and cerebral infarction without residual deficits; Z85.118 Personal history of other malignant neoplasm of bronchus and lung; Z85.51 Personal history of malignant neoplasm of bladder; Z79.82 Long term (current) use of aspirin ==

== ENCOUNTER → 2023-06-23 | Outpatient (CLI) | payer MEDICARE, OTHER | END | disposition home or self-care (01) | LOC: WOUNDCARE 01:29 | PROVIDERS: ATTEND Nurse Practitioner Family | DX: L89.213 Pressure ulcer of right hip, stage 3 (principal); L89.323 Pressure ulcer of left buttock, stage 3; L98.9 Disorder of the skin and subcutaneous tissue, unspecified; L24.A2 Irritant contact dermatitis due to fecal, urinary or dual incontinence; E11.9 Type 2 diabetes mellitus without complications; E78.5 Hyperlipidemia, unspecified; I10 Essential (primary) hypertension; N40.0 Benign prostatic hyperplasia without lower urinary tract symptoms; F03.90 Unspecified dementia, unspecified severity, without behavioral disturbance, psychotic disturbance, mood disturbance, and anxiety; Z86.73 Personal history of transient ischemic attack (TIA), and cerebral infarction without residual deficits; Z85.528 Personal history of other malignant neoplasm of kidney; Z85.51 Personal history of malignant neoplasm of bladder; Z85.118 Personal history of other malignant neoplasm of bronchus and lung; Z95.818 Presence of other cardiac implants and grafts; Z90.5 Acquired absence of kidney; Z79.82 Long term (current) use of aspirin ==

== ENCOUNTER → 2023-06-29 | Outpatient (CLI) | payer MEDICARE, OTHER | END | disposition home or self-care (01) | LOC: RESCLI 01:29 | PROVIDERS: ATTEND Student in an Organized Health Care Education/Training Program | DX: N39.0 Urinary tract infection, site not specified (principal); L89.310 Pressure ulcer of right buttock, unstageable; E55.9 Vitamin D deficiency, unspecified; F03.90 Unspecified dementia, unspecified severity, without behavioral disturbance, psychotic disturbance, mood disturbance, and anxiety; E78.5 Hyperlipidemia, unspecified; E11.40 Type 2 diabetes mellitus with diabetic neuropathy, unspecified; Z88.8 Allergy status to other drugs, medicaments and biological substances; Z82.49 Family history of ischemic heart disease and other diseases of the circulatory system; Z98.890 Other specified postprocedural states; Z79.82 Long term (current) use of aspirin; Z79.899 Other long term (current) drug therapy ==

== ENCOUNTER → 2023-07-07 | Outpatient (CLI) | payer MEDICARE, OTHER | END | disposition home or self-care (01) | LOC: WOUNDCARE 02:54 | PROVIDERS: ATTEND Nurse Practitioner Family | DX: L89.213 Pressure ulcer of right hip, stage 3 (principal); L89.323 Pressure ulcer of left buttock, stage 3; L98.9 Disorder of the skin and subcutaneous tissue, unspecified; L24.A2 Irritant contact dermatitis due to fecal, urinary or dual incontinence; E78.5 Hyperlipidemia, unspecified; N40.0 Benign prostatic hyperplasia without lower urinary tract symptoms; F03.90 Unspecified dementia, unspecified severity, without behavioral disturbance, psychotic disturbance, mood disturbance, and anxiety; Z86.73 Personal history of transient ischemic attack (TIA), and cerebral infarction without residual deficits; Z85.51 Personal history of malignant neoplasm of bladder; Z85.528 Personal history of other malignant neoplasm of kidney; Z85.118 Personal history of other malignant neoplasm of bronchus and lung; Z95.818 Presence of other cardiac implants and grafts; Z90.5 Acquired absence of kidney; Z79.82 Long term (current) use of aspirin ==

== ENCOUNTER → 2023-08-01 | Outpatient (CLI) | payer MEDICARE, OTHER ==
[~2023-08-01] MED LIST changes: -ATORVASTATIN CA10 M1 PO; +JANUMET 50-1,01 EACH PO; +LIPITOR80 MG PO; +Regadenoson 0.4 MG/5 ML SYR IV ONE
== END | disposition home or self-care (01) ==
LOC: CARD 00:53
PROVIDERS: ATTEND Internal Medicine Cardiovascular Disease
DX: L89.213 Pressure ulcer of right hip, stage 3 (principal); R93.1 Abnormal findings on diagnostic imaging of heart and coronary circulation; L98.9 Disorder of the skin and subcutaneous tissue, unspecified; L24.A2 Irritant contact dermatitis due to fecal, urinary or dual incontinence; I10 Essential (primary) hypertension; E78.5 Hyperlipidemia, unspecified; N40.0 Benign prostatic hyperplasia without lower urinary tract symptoms; F03.90 Unspecified dementia, unspecified severity, without behavioral disturbance, psychotic disturbance, mood disturbance, and anxiety; Z85.51 Personal history of malignant neoplasm of bladder; Z86.73 Personal history of transient ischemic attack (TIA), and cerebral infarction without residual deficits; Z85.528 Personal history of other malignant neoplasm of kidney; Z85.118 Personal history of other malignant neoplasm of bronchus and lung

== ENCOUNTER → 2023-08-15 | Outpatient (CLI) | payer MEDICARE, OTHER ==
[~2023-08-15] MED LIST changes: -Regadenoson 0.4 MG/5 ML SYR IV ONE
== END | disposition home or self-care (01) ==
LOC: WOUNDCARE 05-04 01:24
PROVIDERS: ATTEND Nurse Practitioner Family
DX: L89.213 Pressure ulcer of right hip, stage 3 (principal); L98.9 Disorder of the skin and subcutaneous tissue, unspecified; L24.A2 Irritant contact dermatitis due to fecal, urinary or dual incontinence; I10 Essential (primary) hypertension; E78.5 Hyperlipidemia, unspecified; N40.0 Benign prostatic hyperplasia without lower urinary tract symptoms; F03.90 Unspecified dementia, unspecified severity, without behavioral disturbance, psychotic disturbance, mood disturbance, and anxiety; Z86.73 Personal history of transient ischemic attack (TIA), and cerebral infarction without residual deficits; Z85.528 Personal history of other malignant neoplasm of kidney; Z85.51 Personal history of malignant neoplasm of bladder; Z85.118 Personal history of other malignant neoplasm of bronchus and lung